=== PATIENT | female | born 1950 | race Caucasian/White ===

== ENCOUNTER 2017-04-25 11:23 | Day surgery (SDC) | payer MEDICARE, MEDICAID ==
[2017-04-24 13:34] VITALS: BMI 40.1
[2017-04-25] MEDS ORDERED: HYDROmorphone 0.5 MG/0.5 ML SYRINGE ONE (11:29)
[2017-04-25] MEDS ORDERED: Midazolam HCl 2 mg/2 ml Vial ONE (11:29)
[2017-04-25] MEDS ORDERED: Famotidine/PF 20 mg/2ml Vial ONE (14:31)
[2017-04-25] MEDS ORDERED: Fentanyl 100 MCG/2 ML VIAL ONE (14:31)
--- NOTE | 2017-04-25 15:51 | MRI ---
MRI LUMBAR SPINE NONCONTRAST: DATE: 04/25/17 HISTORY: 67-year-old female with low back pain and bilateral lumbar radiculopathy, chronic. COMPARISON: No prior MRIs. FINDINGS: There are five lumbar type vertebrae. There is exaggerated lordosis at the lower lumbar spine and lum bosacral junction. The bone marrow signal is normal. Vertebral body heights are maintained. No high g rade disc space narrowing at any level. The conus medullaris terminates at T12-L1. In fact, the spina l canal and thecal sac are generous in caliber throughout all levels, except L4-5. The cauda equina i s arranged in a symmetrical, normal distribution throughout the thecal sac. Small 0.8 cm T2 hyperintense well circumscribed round lesion in the left renal posterior mid pole par enchyma, too small to characterize, but probably a cyst. A smaller such region at the posterior aspec t of the left renal lower pole parenchyma. No major abnormality of perivertebral spaces. T10-11: Mild disc bulge. Left paracentral tiny disc protrusion. No central or neural foraminal stenos is. Mild to moderate disc space narrowing. T11-12: Imaged only on sagittal sequences. Normal. T12-L1: Normal. L1-2: small central disc protrusion which indents the ventral surface of the thecal sac. Otherwise, t his level is normal. L2-3: Mild degenerative facet changes. Otherwise normal. L3-4: Mild degenerative facet changes, otherwise normal. L4-5: Severe right degenerative facet hypertrophy. Moderate left degenerative facet hypertrophy. Bila teral facet joint effusions. Moderate bilateral neural foraminal stenosis. Mild to moderate central s marshal canal stenosis. Lateral recess stenosis bilaterally. Moderate ligamentum flavum thickening. Mil d disc bulge. L5-S1: Bilateral facet joint effusions. Severe left degenerative facet changes. Mild to moderate righ t degenerative facet changes. No central stenosis. Mild bilateral neural foraminal stenosis. IMPRESSION: 1. Severe facet osteoarthrosis on the right at L4-5 and on the left at L5-S1. Moderate facet ost eoarthrosis on the left at L4-5. 2. Lateral recess stenosis bilaterally at L4-5. 3. the rest of the lumbar spine is essentially normal. JN R POS: OFF
== END 2017-04-25 17:08 | disposition home or self-care (01) ==
LOC: SDC/OP 11:23
PROVIDERS: ATTEND Physical Medicine & Rehabilitation
DX: M47.897 Other spondylosis, lumbosacral region (principal); M48.061 Spinal stenosis, lumbar region without neurogenic claudication; M54.16 Radiculopathy, lumbar region; I11.0 Hypertensive heart disease with heart failure; I50.9 Heart failure, unspecified; E03.9 Hypothyroidism, unspecified; E78.5 Hyperlipidemia, unspecified; J44.9 Chronic obstructive pulmonary disease, unspecified; E11.9 Type 2 diabetes mellitus without complications; G47.33 Obstructive sleep apnea (adult) (pediatric); Z88.5 Allergy status to narcotic agent; Z88.8 Allergy status to other drugs, medicaments and biological substances; Z91.048 Other nonmedicinal substance allergy status; Z99.89 Dependence on other enabling machines and devices; E66.01 Morbid (severe) obesity due to excess calories; Z98.890 Other specified postprocedural states; Z68.41 Body mass index [BMI] 40.0-44.9, adult
CPT/HCPCS: 72148; J1170; J2250; J3010; J7620; S0028

== ENCOUNTER 2018-01-22 14:34 | Emergency (ER) | payer MEDICARE, MEDICAID ==
--- NOTE | 2018-01-22 15:44 | ULT ---
RIGHT LOWER EXTREMITY VENOUS DUPLEX ULTRASOUND INCLUDING COLOR AND SPECTRAL DOPPLER IMAGIN01/22/18 HISTORY: 67-year-old female with history of right lower leg pain, swelling and edema for one month. Exam performed from groin to ankle including visualized greater saphenous, common femoral, superficia l femoral, profunda femoral, popliteal, trifurcation, and posterior tibial vein regions. Phasic flow with normal compressibility and normal augmentation. No intraluminal thrombus. IMPRESSION: No evidence for deep venous thrombosis. POS: [facility]
[2018-01-22] MEDS ORDERED: Bacitracin Zinc 1 Packet ONE (15:47)
== END 2018-01-22 15:54 | disposition home or self-care (01) ==
LOC: ERS 14:34
DX: R60.0 Localized edema (principal); M79.604 Pain in right leg; Z86.73 Personal history of transient ischemic attack (TIA), and cerebral infarction without residual deficits; I48.91 Unspecified atrial fibrillation; I25.10 Atherosclerotic heart disease of native coronary artery without angina pectoris; E11.9 Type 2 diabetes mellitus without complications; K21.9 Gastro-esophageal reflux disease without esophagitis; E78.5 Hyperlipidemia, unspecified; J44.9 Chronic obstructive pulmonary disease, unspecified; G40.909 Epilepsy, unspecified, not intractable, without status epilepticus; F41.9 Anxiety disorder, unspecified; F32.9 Major depressive disorder, single episode, unspecified; F17.210 Nicotine dependence, cigarettes, uncomplicated; Z79.899 Other long term (current) drug therapy; Z79.84 Long term (current) use of oral hypoglycemic drugs
CPT/HCPCS: 94760

== ENCOUNTER 2018-04-09 08:48 | Day surgery (SDC) | payer MEDICARE, MEDICAID ==
[2018-04-08 12:11] VITALS: BMI 39.9
[2018-04-09] MEDS ORDERED: PROPOFOL 200 MG/20 ML VIAL ONE (13:12)
--- NOTE | 2018-04-09 13:19 | OP ---
DATE OF PROCEDURE: 04/09/2018 PROCEDURE PERFORMED: Esophagogastroduodenoscopy and colonoscopy with snare polypectomy/endoscopic mucosal resection. PREOPERATIVE DIAGNOSIS: Iron deficiency anemia. DESCRIPTION OF OPERATION: Informed consent was obtained from the patient. She was sedated with total intravenous anesthesia. The bite block was placed and the endoscope was advanced easily to the second portion of the duodenum and retroflexion was performed in the stomach. The esophagus was normal. The GE junction revealed a 1 to 2 cm hiatal hernia. The stomach was normal including retroflex views. The pylorus and first and second portions of the duodenum were normal. The patient was turned around. Rectal exam was performed and was normal. Preparation quality was good. The colonoscope was advanced to the cecum with the ileocecal valve and appendiceal orifice were clearly identified. A 2 mm polyp was removed by cold biopsy forceps from the ascending colon. A 3 mm polyp was removed from the transverse colon by cold biopsy forceps. There was a 1.8 cm flat polyp in the distal transverse colon at the site of the previous tattoo site. This was raised with saline; however, it had dimpled at a crease in the fold. The polyp was then removed in 3 pieces by piecemeal snare cautery polypectomy. The polyp edges were cauterized with argon plasma coagulation. There were 2 small edges to the polyp that did not completely remove with a snare and were cauterized with the argon. The remainder of the colonic mucosa was normal. Retroflex views in the rectum were normal. IMPRESSION: 1. Normal esophagogastroduodenoscopy. 2. Two polyps measuring 2 to 3 mm were removed by cold biopsy forceps from the ascending and transverse colon. 3. Flat 1.8 cm polyp in the distal transverse colon with the site of the previous tattoo. This was raised with saline and removed in 3 pieces by snare cautery polypectomy and the edges were cauterized with argon plasma coagulation. 4. Otherwise normal colonoscopy. RECOMMENDATIONS: Repeat colonoscopy in 6 to 12 months to re-evaluate the polypectomy site. Job ID: [id number]
== END 2018-04-09 13:47 | disposition home or self-care (01) ==
LOC: SDC 08:48
PROVIDERS: ATTEND Internal Medicine Gastroenterology
PROC: 0DJ08ZZ Inspection of Upper Intestinal Tract, Via Natural or Artificial Opening Endoscopic (ICD-10-PCS; principal; 2018-04-09)
PROC: 3E0H8GC Introduction of Other Therapeutic Substance into Lower GI, Via Natural or Artificial Opening Endoscopic (ICD-10-PCS; 2018-04-09)
PROC: 0DBK8ZX Excision of Ascending Colon, Via Natural or Artificial Opening Endoscopic, Diagnostic (ICD-10-PCS; 2018-04-09)
PROC: 0DBL8ZX Excision of Transverse Colon, Via Natural or Artificial Opening Endoscopic, Diagnostic (ICD-10-PCS; 2018-04-09)
PROC: 0DBL8ZX Excision of Transverse Colon, Via Natural or Artificial Opening Endoscopic, Diagnostic (ICD-10-PCS; 2018-04-09)
DX: D50.9 Iron deficiency anemia, unspecified (principal); D12.2 Benign neoplasm of ascending colon; D12.3 Benign neoplasm of transverse colon; K44.9 Diaphragmatic hernia without obstruction or gangrene; E78.5 Hyperlipidemia, unspecified; I10 Essential (primary) hypertension; I48.91 Unspecified atrial fibrillation; Z95.5 Presence of coronary angioplasty implant and graft; E11.9 Type 2 diabetes mellitus without complications; K21.9 Gastro-esophageal reflux disease without esophagitis; F41.9 Anxiety disorder, unspecified; J44.9 Chronic obstructive pulmonary disease, unspecified; I25.10 Atherosclerotic heart disease of native coronary artery without angina pectoris; Z87.891 Personal history of nicotine dependence; Z79.82 Long term (current) use of aspirin; Z79.84 Long term (current) use of oral hypoglycemic drugs; Z79.899 Other long term (current) drug therapy; Z88.5 Allergy status to narcotic agent; Z88.8 Allergy status to other drugs, medicaments and biological substances; Z91.048 Other nonmedicinal substance allergy status
CPT/HCPCS: 88305; J2704

== ENCOUNTER 2018-05-26 17:36 | Observation (INO) | payer MEDICARE, MEDICAID ==
--- NOTE | 2018-05-26 18:12 | RAD ---
CHEST ONE VIEW: 05/26/18 HISTORY: Chest pain. COMPARISON: 03/03/18. FINDINGS: The cardiac silhouette is magnified and enlarged. Pulmonary vasculature accentuated by shallow inspir ation. Mediastinum is midline with aortic calcification. No lobar consolidation or evidence of pneumo thorax. IMPRESSION: Cardiomegaly. Atherosclerosis. POS: [facility]
[2018-05-26 18:36] LABS: #Basophils 0.2 thou/uL (0.0-0.2); #Eosinphils 0.1 thou/uL (0.0-0.7); #Lymphocytes 2.1 thou/uL (1.20-3.40); #Monocytes 0.6 thou/uL (0.11-0.59); #Neutrophils 6.1 thou/uL (1.40-6.50); %Eosinophils 1.4 % (0.0-10.0); %Lymphocytes 23.4 % (21.0-51.0); %Monocytes 6.4 % (0.0-10.0); %Neutrophils 66.8 % (42.0-75.0); Hemoglobin 14.6 g/dL (12.0-16.0); Mean Corpuscular Volume 93.9 fL (78.0-98.0); Platelet Count 170 thou/uL (130-400); RBC Distribution Width 13.1 % (11.5-14.5); Red Blood Cell (RBC) Count 4.58 mill/uL (4.20-5.40); White Blood Cell (WBC) Count 9.1 thou/uL (4.8-10.8)
[2018-05-26 18:52] LABS: ALT (SGPT) 18 U/L (8-55); AST (SGOT) 13 U/L (5-34); Albumin 3.8 g/dL (3.4-4.8); Alkaline Phosphatase 84 U/L (40-150); Anion Gap 14 mmol/L (10-20); BUN (Urea Nitrogen) 10 mg/dL (9.8-20.1); Bilirubin, Total 0.4 mg/dL (0.2-1.2); Calc. Creatinine Clearance 0 mL/min (70-130); Calcium 8.6 mg/dL (7.8-10.44); Carbon Dioxide 24 mmol/L (23-31); Chloride 107 mmol/L (98-107); Estimated GFR-MDRD 64; Globulin 1.5 g/dL (2.4-3.5); Glucose 111 mg/dL (80-115); Potassium 4.5 mmol/L (3.5-5.1); Protein, Total 5.3 g/dL (6.0-8.3); Sodium 140 mmol/L (136-145)
--- NOTE | 2018-05-26 18:52 | ULT ---
VENOUS DUPLEX SONOGRAM RIGHT LOWER EXTREMITY 05/26/18 HISTORY: Right leg pain and edema. FINDINGS: The right common femoral vein and greater saphenous junction were evaluated along with the femoral, d eep femoral, popliteal, and posterior tibial veins. Technical artifact of the images is noted. There is good color and spectral doppler flow and compression. IMPRESSION: No sonographic evidence of DVT within the right lower extremity. POS: [facility]
[2018-05-26] MEDS ORDERED: Acetaminophen 325 MG TAB PO PRN (20:51)
[2018-05-26] MEDS ORDERED: Senokot S 8.6-50 MG TAB PO PRN (20:51)
[2018-05-26 22:33] LABS: Troponin I Less than 0.010 ng/mL (< 0.028)
[2018-05-27 00:55] LABS: Troponin I Less than 0.010 ng/mL (< 0.028)
--- NOTE | 2018-05-27 01:27 | HP ---
PRIMARY CARE PHYSICIAN: Dr. Ly. CARDIOLOGISTS: Dr. Castelan. CHIEF COMPLAINT: Chest pain. HISTORY OF PRESENT ILLNESS: Ms. Camargo is a 68-year-old female who presented to the emergency room for chest pain. reports that they ate lunch. The patient lay down to have a nap, at that point woke up and reported pain to midsternal area. It radiated up to both sides of her neck. She had some sublingual nitroglycerin and took 3 of those with no relief. At that point, the spouse called EMS and they arrived, they put 1 inch of nitroglycerin paste on her chest and pain at that point resolved. She does have a pertinent medical history of hypertension, CAD, has had 2 stents placed, last one in the . She does admit to smoking cigarettes and does use oxygen at home. Reports swelling to bilateral lower extremities. The patient does report history of COPD and sees Dr. Calderon. Reports that she recently saw Dr. Calderon and Dr. Castelan within the last several weeks. In the emergency room, initial troponin was undetectable. BNP is 41. No EKG changes. The patient did have a stress test done in June of 2016 which showed an EF of 71%, and at that time, no discrete perfusion defect within the left ventricular myocardium, normal left ventricular wall motion and ejection fraction. Based on history and presentation with HeartScore of 6, the patient will be admitted to the observation unit for further management. PAST MEDICAL HISTORY: COPD, she is on 3 L of O2 at home, atrial fib, GERD, hypertension, hyperlipidemia, diabetes type 2, has had a CVA in the past which she reports affect her swallowing, fibromyalgia, and seizure disorder. 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 PSYCH HISTORY: Anxiety. SOCIAL HISTORY: Denies alcohol or drug use. Does currently smoke. Smokes 1 pack per day. ALLERGIES: ADHESIVE TAPE, AMITRIPTYLINE, BYETTA, CODEINE, DEMEROL, METOPROLOL, MORPHINE, TOPAMAX, TOPROL. CURRENT MEDICATIONS: 1. Lisinopril 20 mg p.o. once a day. 2. Metformin 500 mg p.o. b.i.d. 3. Duloxetine 30 mg p.o. once a day. 4. Plavix 75 mg p.o. once a day. 5. Diltiazem 180 mg p.o. once a day. 6. Propafenone 150 mg p.o. b.i.d. 7. Zantac 300 mg p.o. once a day. 8. Levothyroxine 75 mcg p.o. once a day. 9. Lyrica 150 mg once a day. 10. Crestor 20 mg p.o. once a day. 11. Zetia 10 mg p.o. once a day in the evening. 12. Zonisamide 300 mg p.o. once a day. 13. Furosemide 20 mg p.o. b.i.d. 14. Clonazepam 0.5 mg one tablet daily as needed. 15. Nitrostat 0.4 mg sublingual as needed for chest pain. 16. Ropinirole 0.5 mg p.o. once a day. 17. Hydrocodone 7.5 mg/325 mg q.4 hours as needed for pain. 18. Breo Ellipta 200/25 mcg daily. 19. Biotin 2 times a day. 20. Prilosec 20 mg p.o. once a day. 21. Cartia XL120 mg once a day. 22. Oxybutynin 5 mg p.o. once a day. 23. Ranexa 500 mg p.o. once a day. 24. Aspirin 81 mg p.o. daily. REVIEW OF SYSTEMS: CONSTITUTIONAL: The patient denies fever or chills. EYES: Denies any eye pain, eye discharge, or vision changes. ENT: Denies any sore throat or rhinorrhea. CARDIOVASCULAR: Does report some chest pain. Denies palpitations. RESPIRATORY: Does report shortness of breath. Denies cough. GI: Denies abdominal pain, nausea, vomiting, diarrhea, or constipation. MUSCULOSKELETAL: Denies any myalgias, recent falls, or injuries. SKIN: Denies any skin changes or rash. All other systems reviewed and negative unless mentioned in the HPI. PHYSICAL EXAMINATION: VITAL SIGNS: Blood pressure 131/58, pulse is 65, respirations 18, temperature is 98.5, pO2 sats 96%. CONSTITUTIONAL: The patient appears nontoxic, is in no apparent distress, is alert and oriented to person, place, and time. HEENT: Head is atraumatic and normocephalic. Eyes; eyelids are normal to inspection. Pupils are equal, round, and reactive to light. ENT; mucous membranes are moist. Mouth exam is normal. NECK: Normal range of motion. Trachea is midline. RESPIRATORY/CHEST: She is on 3 L of O2. Breath sounds are clear. No wheezing. Chest movement is symmetrical. CARDIOVASCULAR: Normal rate and rhythm. Heart sounds are normal. ABDOMEN: Nontender. Bowel sounds are heard. BACK: Normal range of motion. No tenderness. EXTREMITIES: Upper extremities; normal inspection. Normal range of motion. Lower extremities, normal range of motion. Edema is noted to bilateral lower extremities. +2 pedal pulses are equal bilaterally. NEUROLOGIC: The patient is oriented to person, place, and time. Speech is normal. No focal motor or sensory deficits. SKIN: Warm, dry, normal in color. IMAGING DATA: EKG in the emergency room shows normal sinus rhythm, beats per minute 73, conduction T waves, axis is left, radiology interpretation some cardiomegaly and atherosclerosis. PERTINENT LABORATORY DATA: Sodium is 140, potassium 4.5, chloride 107, carbon dioxide 24, gap is 14, BUN is 10, creatinine is 0.87, estimated GFR is 64, glucose is 111, calcium is 8.6, bilirubin is 0.4, AST 13, ALT 18, alkaline phosphatase is 84. First troponin is undetectable. BNP 41. White blood cell count is 9.1, hemoglobin 14.6, hematocrit 43.0, platelet count is 170. PLAN AND ASSESSMENT: 1. Chest pain. We will trend troponins. Order a stress test and continue aspirin. 2. Hypertension. We will continue home medications. We will trend. 3. Diabetes type 2. We will restart home medications. We will add a sliding scale. Check blood sugars before meals and at bedtime. 4. Coronary artery disease. We will continue home medications, see #1. 5. Chronic obstructive pulmonary disease. We will continue the patient's oxygen. Continue home medication. 6. History of congestive heart failure. We will continue home medications, stable at this time. 7. Hypothyroidism. We will continue home medications. Thyroid function tests were performed on 05/19/2018, and appeared stable. 8. Lipids were also checked on the of this month. 9. Gastrointestinal prophylaxis will be started. The patient is already on Plavix. 10. Hospital course will be dependent on clinical findings. Job ID: [id number]
[2018-05-27] MEDS: Famotidine 20 MG TAB PO SCH ×2 (04:15→08:23)
[2018-05-27 05:22] LABS: #Basophils 0.1 thou/uL (0.0-0.2); #Eosinphils 0.2 thou/uL (0.0-0.7); #Lymphocytes 2.8 thou/uL (1.20-3.40); #Monocytes 0.7 thou/uL (0.11-0.59); #Neutrophils 5.3 thou/uL (1.40-6.50); %Basophils 0.7 % (0.0-1.0); %Eosinophils 1.9 % (0.0-10.0); %Lymphocytes 30.8 % (21.0-51.0); %Monocytes 7.7 % (0.0-10.0); %Neutrophils 58.9 % (42.0-75.0); Hemoglobin 14.2 g/dL (12.0-16.0); Mean Corpuscular HGB CONC 33.3 g/dL (32.0-36.0); Mean Corpuscular Hemoglobin 31.9 pg (27.0-31.0); Mean Corpuscular Volume 95.8 fL (78.0-98.0); Mean Platelet Volume 7.9 fL (7.4-10.4); Platelet Count 160 thou/uL (130-400); RBC Distribution Width 13.1 % (11.5-14.5); Red Blood Cell (RBC) Count 4.44 mill/uL (4.20-5.40)
[2018-05-27 05:34] LABS: ALT (SGPT) 15 U/L (8-55); AST (SGOT) 14 U/L (5-34); Albumin 3.5 g/dL (3.4-4.8); Alkaline Phosphatase 76 U/L (40-150); Anion Gap 11 mmol/L (10-20); BUN (Urea Nitrogen) 10 mg/dL (9.8-20.1); Bilirubin, Total 0.4 mg/dL (0.2-1.2); Calc. Creatinine Clearance 108 mL/min (70-130); Calcium 8.7 mg/dL (7.8-10.44); Carbon Dioxide 28 mmol/L (23-31); Chloride 107 mmol/L (98-107); Estimated GFR-MDRD 69; Globulin 1.7 g/dL (2.4-3.5); Glucose 99 mg/dL (80-115); Potassium 4.2 mmol/L (3.5-5.1); Protein, Total 5.2 g/dL (6.0-8.3); Sodium 142 mmol/L (136-145)
[2018-05-27] MEDS ORDERED: Enoxaparin Sodium 40 MG/0.4 ML SYRINGE SC SCH (09:00)
--- NOTE | 2018-05-27 15:14 | NM ---
FEXAM: Nuclear medicine stress only cardiac perfusion examination with ejection fraction HISTORY: Chest pain TECHNIQUE: Stress images: 29.60 mCi of technetium 9M sestamibi; Lexiscan stress protocol COMPARISON: None FINDINGS: Tomographic images: No myocardial perfusion defects. Gated images: There is normal wall motion and ejection fraction. The estimated LVEF is 76% IMPRESSION: Normal stress only myocardial perfusion evaluation.
[2018-05-27] MEDS ORDERED: Regadenoson 0.4 MG/5 ML SYRINGE ONE (15:43)
[2018-05-27 16:08] VITALS: BP 138/62; TEMP 98.7
--- NOTE | 2018-05-28 02:23 | DIS ---
DATE OF ADMISSION: 05/26/2018 DATE OF DISCHARGE: 05/27/2018 ALLERGIES: ADHESIVE TAPE, AMITRIPTYLINE, BYETTA, CODEINE, DEMEROL, METOPROLOL, MORPHINE, TOPAMAX. CHIEF COMPLAINT: Chest pain. FINAL DIAGNOSES: 1. Chest pain, resolved, acute coronary syndrome ruled out, nuclear stress test negative for reversible ischemia. 2. Coronary artery disease, status post stents, patient of Dr. Castelan. 3. Paroxysmal atrial fibrillation, currently in normal sinus rhythm. 4. Tobacco abuse. 5. Obesity. 6. Fibromyalgia. 7. Prior cerebrovascular accident. PROCEDURES PERFORMED: None. LABORATORY RESULTS: White blood cell count 9.0, hemoglobin 14.2, hematocrit 42.5. Sodium 142, potassium 4.2, chloride 107, anion gap 11, BUN 10, creatinine 0.82, and GFR 69. Liver function tests within normal limits. Troponin negative x3. BNP 41. Albumin 3.5. IMAGING RESULTS: Nuclear stress test using Lexiscan stress protocol showed normal stress only myocardial perfusion evaluation with normal wall motion and no myocardial perfusion defects. CONSULTATIONS: None. HOSPITAL COURSE: The patient is a pleasant 68-year-old obese female with past medical history significant for coronary artery disease, status post stents with normal MPI in 2017; paroxysmal atrial fibrillation, prior stroke, and fibromyalgia, who presented to the hospital with complaints of chest pain that began last night when she was watching a movie. She describes the chest pain as pressure. She did have some associated shortness of breath, it radiated up to the neck. She did take 3 sublingual nitroglycerin without any relief of her pain, and so presented to the ER for further workup and treatment. In the ER, she was given 1 inch of nitroglycerin paste, which did eventually relieve her pain. Her serial enzymes were negative x3. This morning, she did have her nuclear stress test which was negative for ischemia. She has walked and not had any further chest discomfort. Her presenting symptoms have resolved. PHYSICAL EXAMINATION: VITAL SIGNS: Blood pressure 138/62, temperature 98.7, pulse is 64, and O2 saturation is 94% on room air. GENERAL: This is an obese female, resting comfortably, in no distress. HEENT: Atraumatic and normocephalic. Eye movements intact. NECK: Supple. No lymphadenopathy. No carotid bruits. RESPIRATORY: Regular respiratory rate and pattern, overall clear to auscultation. CARDIOVASCULAR: S1, S2. Regular rate and rhythm. No appreciable murmurs, rubs, or gallops. GI: Soft, nontender, and obese. PERIPHERAL VASCULAR: No lower extremity pitting edema. MUSCULOSKELETAL: No joint effusion or swelling. NEUROLOGIC: She is awake and alert. Cranial nerves 2 through 12 intact. No focal deficits. SKIN: Warm and dry. No rashes. CONDITION AT DISCHARGE: Stable. DISCHARGE MEDICATIONS: The patient will continue her home medication regimen including; 1. Lisinopril 20 mg p.o. once a day. 2. Metformin 500 mg p.o. b.i.d. 3. Duloxetine 30 mg p.o. daily. 4. Plavix 75 mg once a day. 5. Diltiazem 180 mg p.o. daily. 6. Propafenone 150 mg p.o. t.i.d. 7. Zantac 300 mg p.o. once daily. 8. Levothyroxine 75 mcg p.o. daily. 9. Lyrica 150 mg daily. 10. Crestor 20 mg at bedtime. 11. Zetia 10 mg at bedtime. 12. Zonisamide 300 mg daily. 13. Furosemide 20 mg p.o. b.i.d. 14. Clonazepam 0.5 mg tablet as needed. 15. Nitrostat 0.4 mg sublingual as needed for chest pain. 16. Ropinirole 0.5 mg at bedtime. 17. Hydrocodone 7.5/325 q.4 hours p.r.n. 18. Breo inhaler once daily. 19. Biotin 2 times a day. 20. Prilosec 20 mg once daily. 21. Oxybutynin 5 mg p.o. once daily. 22. Ranexa 500 mg p.o. b.i.d. 23. Aspirin 81 mg daily. I have refilled the patient's sublingual nitroglycerin, so that she has fresh on hand. DISCHARGE DISPOSITION: Home. PLAN: The patient will continue to keep fresh nitroglycerin on hand. I have explained that her chest discomfort could be related to other than cardiac etiologies such as esophageal spasm. She will return to the hospital with any recurrence of symptoms. She will follow up with both, Dr. Calderon and Dr. Castelan as scheduled. I have given her extensive counseling on tobacco cessation along with risk factor modification. The patient does understand the above plan and discharge were discussed with Dr. Edmond, who does agree as above. Job ID: [id number]
--- NOTE | 2018-05-30 20:53 | EKG ---
Test Reason : CP Blood Pressure : / mmHG Vent. Rate : 073 BPM Atrial Rate : 073 BPM P-R Int : 164 ms QRS Dur : 084 ms QT Int : 410 ms P-R-T Axes : 052 -44 028 degrees QTc Int : 451 ms Normal sinus rhythm Left axis deviation Low voltage QRS Nonspecific T wave abnormality Abnormal ECG Confirmed by RACHNA ROMERO DO ([id number]), editor book JULISSA ROCHA ([id number]) on 05/30/2018 8:53:11 PM Referred By: Confirmed By:RACHNA ROMERO DO
== END 2018-05-27 17:13 | disposition home or self-care (01) ==
LOC: ERS 17:36 → 2SW 21:28
PROVIDERS: ADMIT Hospitalist; ATTEND Hospitalist
DX: R07.2 Precordial pain (principal); I25.10 Atherosclerotic heart disease of native coronary artery without angina pectoris; I10 Essential (primary) hypertension; F17.210 Nicotine dependence, cigarettes, uncomplicated; J44.9 Chronic obstructive pulmonary disease, unspecified; Z99.81 Dependence on supplemental oxygen; K21.9 Gastro-esophageal reflux disease without esophagitis; E78.5 Hyperlipidemia, unspecified; E11.9 Type 2 diabetes mellitus without complications; I69.998 Other sequelae following unspecified cerebrovascular disease; G40.909 Epilepsy, unspecified, not intractable, without status epilepticus; F41.9 Anxiety disorder, unspecified; E03.9 Hypothyroidism, unspecified; I48.0 Paroxysmal atrial fibrillation; M79.7 Fibromyalgia; E66.9 Obesity, unspecified; Z68.39 Body mass index [BMI] 39.0-39.9, adult; Z90.710 Acquired absence of both cervix and uterus; Z95.5 Presence of coronary angioplasty implant and graft; Z96.651 Presence of right artificial knee joint; Z98.41 Cataract extraction status, right eye; Z98.42 Cataract extraction status, left eye; Z91.09 Other allergy status, other than to drugs and biological substances; Z90.49 Acquired absence of other specified parts of digestive tract; Z88.5 Allergy status to narcotic agent; Z88.8 Allergy status to other drugs, medicaments and biological substances; Z79.84 Long term (current) use of oral hypoglycemic drugs; Z79.02 Long term (current) use of antithrombotics/antiplatelets; Z79.82 Long term (current) use of aspirin; Z79.51 Long term (current) use of inhaled steroids; Z79.899 Other long term (current) drug therapy; Z98.890 Other specified postprocedural states
CPT/HCPCS: 71045; 78452; 80053 ×2; 83880; 84484 ×3; 85025 ×2; 93005; 93017; 93971; 97116; 97139 ×2; 99285; A9500; G0378 ×2; 36415; J2785

== ENCOUNTER 2018-09-14 14:53 | Inpatient (IN) | payer MEDICARE, MEDICAID ==
[2018-09-14 16:08] LABS: #Eosinphils 0.1 thou/uL (0.0-0.7); #Lymphocytes 1.8 thou/uL (1.20-3.40); #Monocytes 0.6 thou/uL (0.11-0.59); #Neutrophils 6.1 thou/uL (1.40-6.50); %Basophils 0.2 % (0.0-1.0); %Eosinophils 1.4 % (0.0-10.0); %Lymphocytes 20.5 % (21.0-51.0); %Monocytes 6.6 % (0.0-10.0); %Neutrophils 71.3 % (42.0-75.0); Hemoglobin 13.2 g/dL (12.0-16.0); Mean Corpuscular HGB CONC 33.3 g/dL (32.0-36.0); Mean Corpuscular Volume 93.3 fL (78.0-98.0); Mean Platelet Volume 9.2 fL (7.4-10.4); Platelet Count 122 thou/uL (130-400); Red Blood Cell (RBC) Count 4.26 mill/uL (4.20-5.40); White Blood Cell (WBC) Count 8.5 thou/uL (4.8-10.8)
[2018-09-14 16:25] LABS: ALT (SGPT) 11 U/L (8-55); AST (SGOT) 13 U/L (5-34); Albumin 3.6 g/dL (3.4-4.8); Alkaline Phosphatase 67 U/L (40-150); Anion Gap 13 mmol/L (10-20); BUN (Urea Nitrogen) 18 mg/dL (9.8-20.1); Bilirubin, Total 0.4 mg/dL (0.2-1.2); CK (CPK) 50 U/L (29-168); Calc. Creatinine Clearance 0 mL/min (70-130); Calcium 8.7 mg/dL (7.8-10.44); Carbon Dioxide 27 mmol/L (23-31); Chloride 103 mmol/L (98-107); Estimated GFR-MDRD 42; Globulin 1.9 g/dL (2.4-3.5); Glucose 101 mg/dL (80-115); Potassium 4.5 mmol/L (3.5-5.1); Protein, Total 5.5 g/dL (6.0-8.3); Sodium 138 mmol/L (136-145)
[2018-09-14 16:46] LABS: Free T4 (Free Thyroxine) 1.15 ng/dL (0.70-1.48); Thyroid Stimulating Hormone 0.5353 uIU/mL (0.35-4.94)
[2018-09-14] MEDS ORDERED: Naloxone HCl 0.4 mg/ml Vial ONE ×3 (17:04→19:50)
--- NOTE | 2018-09-14 17:14 | CT ---
CT BRAIN WITHOUT CONTRAST: HISTORY: Fall. Altered mental status. COMPARISON: CT brain from 01/12/2016. FINDINGS: There is a partially calcified right frontal meningioma. No acute hemorrhage or infarct. No midline shift or mass effect. Ventricular size and extraaxial CSF spaces are similar. Moderate microvascular ischemic changes. The paranasal sinuses and mastoids are clear. The calvariu m is intact. The globes are intact. IMPRESSION: No acute intracranial abnormality. POS: HOME
--- NOTE | 2018-09-14 17:18 | CT ---
CT CERVICAL SPINE WITHOUT CONTRAST: INDICATIONS: Altered mental status with trauma. Possible fall at home. Concern for neck injury. COMPARISON: CT cervical spine, dated 08/06/2013. FINDINGS: Slight anterior translation of C2 on C3 and of C3 on C4 is stable. There is moderate to severe multi level spondylosis of the cervical spine. No acute fracture or subluxation is evident. The osseous c entral canal appears preserved. The prevertebral soft tissues are normal appearing. Mild mucus debr is is seen within the right aspect of the piriform sinuses and vallecula. No lymphadenopathy is evid ent. There is some subsegmental volume loss within the upper lobes. IMPRESSION: 1. No acute fracture or subluxation demonstrated. 2. Stable moderate to severe multilevel spondylosis of the cervical spine. POS: [facility]
[2018-09-14] MEDS ORDERED: Guaifenesin DM 100-10/5 ML UDCUP PO PRN (17:47)
[2018-09-14] MEDS ORDERED: HumaLOG 300 UNITS/3 ML VIAL SC PRN ×2 (17:47)
[2018-09-14] MEDS ORDERED: Senokot S 8.6-50 MG TAB PO PRN (17:47)
[2018-09-14] MEDS ORDERED: Dextrose 50% Abboject 50 ML SYRINGE SLOW IVP PRN (17:47)
[2018-09-14] MEDS ORDERED: Acetaminophen 325 MG TAB PO PRN (17:47)
[2018-09-14] MEDS ORDERED: Dextrose 5% in Water 1,000 ML IV PRN (17:47)
[2018-09-14] MEDS ORDERED: Bisacodyl 10 MG SUPP PR PRN (17:47)
[2018-09-14] MEDS ORDERED: Ondansetron PF 4 MG/2 ML Vial IVP PRN (17:47)
[2018-09-14 18:30] LABS: Bilirubin Negative (Negative); Blood, Urine Negative (Negative); Clarity Clear (Clear); Glucose, Urine (Dipstick) Normal (Negative); Leukocyte Negative Leu/uL (Negative); Nitrite Negative (Negative); Protein, Urine (Dipstick) Negative (Neg-Trace); Urobilinogen Normal mg/dL (Less than 2)
[2018-09-14] MEDS ORDERED: Naloxone HCl 0.4 mg/ml Vial IV SCH (19:45)
--- NOTE | 2018-09-14 20:42 | HP ---
REASON FOR ADMISSION: Acute encephalopathy, acute respiratory failure with hypoxia secondary to likely narcotics, moderate dehydration, acute kidney injury. HISTORY OF PRESENTING ILLNESS: Please note majority of this history is obtained by talking to the patient's who is here at bedside and son as the patient is very lethargic. Her attention span after repeated stimulation is hardly few seconds. The patient goes back to sleep. When she wakes up, she does respond well. She follows command. She follows verbal stimuli. Per , the patient took shower early this morning and she could not get up from the shower. The had to literally pick her up and put her in the bed. After a few hours, the patient tried to ambulate and was on the ground, and the had to literally pick her up again and put her in bed. He also mentioned that she has been more lethargic and sleepy for the last 4 days now. She normally walks with a walker inside the house and a bit outside. For long distances, she uses a wheelchair. She has chronic pain in both her upper cervical and lower lumbar spines. She has had four shots to her lower back done [address] Mukherjee, pain specialist. She had a neck shot four weeks back by Dr. Mukherjee as well. No complaints of fever at home. No cough or expectoration. No complaints of chest pain. No urinary frequency or urgency. mentions that she has not been eating much for the last 4 days now. She usually drinks up to a liter of Coke daily. She also smokes around 2 packs a day daily. PAST MEDICAL AND SURGICAL HISTORY: Prior history of overdose. Nuclear stress test done in May of 2018 was negative, ejection fraction was 76%. She has had EGD and colonoscopy done on 04/09/2018. History of COPD, on 3 L oxygen at home. Chronic atrial fibrillation, GERD, hypertension, dyslipidemia, diabetes mellitus type 2, history of CVA in the past with some discomfort with swallowing, fibromyalgia, seizure disorder, appendectomy, coronary artery disease with prior 2 stents, cholecystectomy, hysterectomy, right knee replacement, bilateral cataract removal. CURRENT MEDICATIONS: The patient is on; 1. Levothyroxine 75 mcg p.o. daily. 2. Lasix 20 mg daily. 3. Omeprazole 20 mg daily. 4. Cartia XT 120 mg daily. 5. Propafenone 150 mg three times daily. 6. Metformin 500 mg two tablets twice daily. 7. Clonazepam 1 mg p.o. twice daily. 8. Oxybutynin 5 mg twice daily. 9. Ranexa 500 mg twice daily. 10. Lyrica 150 mg twice daily. 11. Aspirin 81 mg daily. 12. Ranitidine 300 mg p.o. daily. 13. Duloxetine 60 mg daily. 14. Ezetimibe 10 mg p.o. daily. 15. Lisinopril 5 mg daily. 16. Rosuvastatin 20 mg daily. 17. Zonisamide 300 mg p.o. at bedtime. 18. Loratadine 10 mg p.o. daily. 19. Lipo-Flavonoid one tablet three times daily. ALLERGIES: ALLERGIC TO AMITRIPTYLINE, BYETTA, CODEINE, DEMEROL, METOPROLOL, MORPHINE, TOPAMAX, TOPROL, AND ADHESIVE TAPE. PERSONAL HISTORY: The patient continues to smoke two packs a day. Does not abuse alcohol or drugs. Lives with her . They have been for nearly 48 years. FAMILY HISTORY: Mother at the age of 71 years, she has had history of breast cancer. Father at the age of 79, he has had history of prostate cancer. CODE STATUS: Do not attempt to resuscitate. This was confirmed with the patient and who is here at bedside. REVIEW OF SYSTEMS: CONSTITUTIONAL: Negative for weight loss or gain, ability to conduct usual activities. SKIN: Negative for rash, itching. EYES: Negative for double vision, pain. ENT/MOUTH: Negative for nose bleeding, neck stiffness, pain, tenderness. CARDIOVASCULAR: Negative for palpitations, dyspnea on exertion, orthopnea. RESPIRATORY: Negative for shortness of breath, wheezing, cough, hemoptysis, fever or night sweats. GASTROINTESTINAL: Negative for poor appetite, abdominal pain, heartburn, nausea, vomiting, constipation, or diarrhea. GENITOURINARY: Negative for urgency, frequency, dysuria, nocturia. MUSCULOSKELETAL: Negative for pain, swelling. NEUROLOGIC/PSYCHIATRIC: Negative for anxiety, depression. ALLERGY/IMMUNOLOGIC: Negative for skin rash, bleeding tendency. PHYSICAL EXAMINATION: GENERAL: The patient is a 68-year-old female, who is currently not in any acute distress, but is very lethargic. VITAL SIGNS: Blood pressure 110/60, pulse 66 per minute, respiratory rate 16 per minute, temperature 97.9 degrees Fahrenheit, saturating 92% on 2 L nasal cannula. NECK: Supple. No elevated JVD. HEENT: Eyes; extraocular muscles intact. Pupils are reacting to light. Oral cavity, mucous membranes are dry. No exudates or congestion. CARDIOVASCULAR SYSTEM: S1 and S2, heard. Regular rhythm. RESPIRATORY SYSTEM: Air entry 1+ bilateral. Scattered rhonchi plus no rales or wheezes. ABDOMEN: Soft. Bowel sounds heard. No tenderness, rigidity, or guarding. EXTREMITIES: No peripheral edema or calf tenderness. VASCULAR SYSTEM: Peripheral pulses 1+ bilateral. No ischemic ulcerations or gangrene. CENTRAL NERVOUS SYSTEM: No gross focal deficits noted. The patient moves both upper extremities well, but has difficulty moving her both lower extremities. She is barely able to move with gravity on the bed. Again, the patient is very lethargic and accurate neurologic exam is difficult to perform. PSYCHIATRIC SYSTEM: The patient is very lethargic, but responds well to verbal questions in her limited attention span. No obvious hallucinations or delusions. LABORATORY DATA: CT brain without contrast done showed no acute intracranial abnormality. CT cervical spine without contrast done showed no acute fracture or subluxation. Stable moderate to severe multilevel spondylosis of the C-spine seen. White count 8.5, hemoglobin and hematocrit are 13 and 39, platelet count 122, MCV is 93 with 71% neutrophils. Electrolytes stable. BUN 18, creatinine 1.27. Serum bicarb 27, serum glucose 101. Liver enzymes within normal limits. Ammonia is 30. Albumin is 3.6. TSH 0.53, free T4 of 1.1. Troponin-I less than 0.01. Urinalysis shows negative nitrite and leukocyte esterase. EKG done shows normal sinus rhythm at 70 beats per minute. There is poor R-wave progression. There are questionable Q-waves in leads II, III, aVF. CLINICAL IMPRESSION AND PLAN: The patient will be upgraded to IMCU from telemetry. The patient was initially admitted to telemetry and became more lethargic with respiratory rates dropping to 10 per minute, although her saturations were holding up to 90%. She will be given another dose of Narcan, that will be the second dose. Initial dose given in the ER, with which she responded with being more alert and awake. She will be closely monitored in IMCU for airway. We will also place her on DuoNebs, steroids 20 mg IV q.6 hourly. Blood and urine cultures have been obtained in the ER. We will empirically place her on Levaquin for now. The patient has been lethargic for the last 4 days now. She will be gently hydrated with normal saline. We will continue aspirin, Cardizem CD, propafenone, levothyroxine, Lyrica, Ranexa, Crestor, and zonisamide as before. She will be on clear liquid diet until she becomes more awake and alert. We will continue to closely monitor her. Job ID: [id number]
[2018-09-14] MEDS: Sodium Chloride 0.9% 1,000 ML IV SCH (20:55)
[2018-09-14] MEDS ORDERED: Famotidine/PF 20 mg/2ml Vial SLOW IVP SCH (21:00)
[2018-09-14] MEDS: Propafenone HCl 150 MG TAB PO SCH (21:04)
[2018-09-14] MEDS: Ezetimibe 10 MG TAB PO SCH (21:04)
[2018-09-14] MEDS: DULoxetine 60 MG CAP PO SCH (21:05)
[2018-09-14] MEDS: Rosuvastatin 20 MG TAB PO SCH (21:05)
[2018-09-14] MEDS: Aspirin 81 mg Enteric Coated Tablet PO SCH (21:05)
[2018-09-14] MEDS: Pregabalin 75 MG CAP PO SCH (21:08)
[2018-09-14] MEDS: Nicotine 21 MG PATCH TD SCH (21:11)
[2018-09-14] MEDS: Zonisamide 100 MG CAP PO SCH (22:40)
[2018-09-14 23:18] VITALS: BMI 44.8
[2018-09-15] MEDS: methylPREDNISolone Sod Succ 40 MG VIAL IVP SCH ×3 (00:15→11:15)
[2018-09-15 04:38] LABS: Amphetamine Not Detected (NotDetected); Barbiturates Screen Not Detected (NotDetected); Benzodiazepine Screen Not Detected (NotDetected); Cocaine Metabolite Screen Not Detected (NotDetected); Medtox Control Line Valid? VALID (VALID); Medtox Reader # READER 4; Methadone Not Detected (NotDetected); Methamphetamine Not Detected (NotDetected); Opiate Screen Not Detected (NotDetected); Oxycodone Screen Not Detected (NotDetected); Phencyclidine (PCP) Not Detected (NotDetected); THC/Cannabinoid Screen Not Detected (NotDetected); Tricyclic Screen Not Detected (NotDetected)
[2018-09-15 05:06] LABS: #Monocytes 0.1 thou/uL (0.11-0.59); #Neutrophils 5.3 thou/uL (1.40-6.50); %Basophils 0.5 % (0.0-1.0); %Eosinophils 0.6 % (0.0-10.0); %Lymphocytes 15.8 % (21.0-51.0); %Monocytes 1.3 % (0.0-10.0); %Neutrophils 81.8 % (42.0-75.0); Hemoglobin 13.6 g/dL (12.0-16.0); Mean Corpuscular HGB CONC 32.9 g/dL (32.0-36.0); Mean Corpuscular Hemoglobin 30.7 pg (27.0-31.0); Mean Corpuscular Volume 93.5 fL (78.0-98.0); Mean Platelet Volume 8.5 fL (7.4-10.4); Platelet Count 111 thou/uL (130-400); RBC Distribution Width 12.6 % (11.5-14.5); Red Blood Cell (RBC) Count 4.43 mill/uL (4.20-5.40); White Blood Cell (WBC) Count 6.5 thou/uL (4.8-10.8)
[2018-09-15 05:24] LABS: Anion Gap 10 mmol/L (10-20); BUN (Urea Nitrogen) 14 mg/dL (9.8-20.1); Calc. Creatinine Clearance 106 mL/min (70-130); Calcium 8.8 mg/dL (7.8-10.44); Carbon Dioxide 26 mmol/L (23-31); Chloride 105 mmol/L (98-107); Estimated GFR-MDRD 70; Glucose 123 mg/dL (80-115); Potassium 4.7 mmol/L (3.5-5.1); Sodium 136 mmol/L (136-145)
[2018-09-15] MEDS: Levothyroxine Sodium 75 MCG TAB PO SCH (06:30)
[2018-09-15] MEDS: Sodium Chloride 0.9% 1,000 ML IV SCH (09:56)
[2018-09-15] MEDS: metFORMIN 500 MG TAB PO SCH ×2 (09:57→17:18)
[2018-09-15] MEDS: Enoxaparin Sodium 40 MG/0.4 ML SYRINGE SC SCH (09:58)
[2018-09-15] MEDS: Oxybutynin 5 MG TAB PO SCH ×2 (09:59→21:04)
[2018-09-15] MEDS: Propafenone HCl 150 MG TAB PO SCH (09:59)
[2018-09-15] MEDS: Pregabalin 75 MG CAP PO SCH ×2 (09:59→21:06)
--- NOTE | 2018-09-15 10:22 | CON ---
DATE OF CONSULTATION: 09/15/2018 HISTORY OF PRESENT ILLNESS: This is a 68-year-old female, who was admitted to the hospital with encephalopathy. She is confused. This morning, she tells me she is unclear why she came to the hospital, but she was having some shaking spells. She sees Dr. Ly in [place], [place] at multiple issues. Continues to smoke a pack a day. Denies any coughing or wheezing. On a regular day, she can barely walk up 100 feet without getting markedly short of breath. She is noncompliant with the CPAP machine apparently causes her chest pain. PAST MEDICAL HISTORY: 1. COPD. 2. Diabetes. 3. Hypothyroidism. 4. Encephalopathy. 5. Hyperlipidemia. 6. CHF by history, several cardiac stents. PAST SURGICAL HISTORY: 1. Hysterectomy. 2. Appendix. 3. Two cardiac stents done in [place], [place]. 4. Cholecystectomy. 5. Left total knee. 6. Colonoscopy. HOME MEDICATIONS: Include, 1. Metformin. 2. Klonopin. 3. Crestor. 4. Ranexa. 5. Zantac. 6. Rythmol. 7. Lyrica. 8. Ditropan. 9. Omeprazole. 10. Nitrostat. 11. Claritin. 12. Synthroid. 13. Nebulizer. 14. Lasix. 15. Zetia. 16. Cardizem 120. 17. Cymbalta 60. 18. Aspirin. Since admission, see started on steroids, neb treatment, empiric antibiotics. ALLERGIES: MULTIPLE INCLUDING AMITRIPTYLINE, MORPHINE, ADHESIVE TAPE, CODEINE, DEMEROL, AND TOPAMAX. REVIEW OF SYSTEMS: Otherwise, 10-point negative. PHYSICAL EXAMINATION: GENERAL: Morbidly obese female, who is less encephalopathic this morning. VITAL SIGNS: Pulse 66, blood pressure 120/60, and sats 100% on 2 L. CHEST: Decreased breath sounds. No wheezing. CARDIAC: Normal S1 and S2. No gallops. ABDOMEN: No masses. LABORATORY DATA: White count 6000, Hemoglobin and hematocrit are 13 and 41, platelet count 111, it is low, but normal before. Lytes are normal. Drug screen was negative. CT brain was negative. IMPRESSION: 1. Metabolic encephalopathy. 2. Morbid obesity. 3. Hypothyroidism. 4. Sleep apnea. 5. Diabetes. 6. Coronary artery disease. PLAN: She probably needs to be restarted on her home CPAP for the reasons why she is feeling so sleepy and tired. She may very well require repeat sleep study. Otherwise pulmonary orozco, she is to refrain from smoking. Continue neb treatments and steroids. We will follow. 70 minutes, consultation note, 50% direct patient care. Job ID: [id number]
--- NOTE | 2018-09-15 11:02 | RAD ---
XR Chest 1 View Portable HISTORY: COPD COMPARISON: 05/26/2018 study FINDINGS: Heart size is enlarged. There are atherosclerotic changes of the aorta. The lungs are clear of infiltrates. There are no signs of failure. IMPRESSION: Cardiomegaly. Stable chest.
--- NOTE | 2018-09-15 12:34 | PDOC.PN ---
- Subjective Encounter Start Date: 09/15/18 Encounter Start Time: 11:20 Subjective: is awake and oriented this am -: no sob - Objective Resuscitation Status - Order Detail: 09/14/18 17:34 Resuscitation Status Routine Resuscitation Status: DNAR: NO Resuscitation Discussed with: d/w and POA at bedside in Emergency room May Reviewed: Yes Vital Signs & Weight: Vital Signs (12 hours) Temp Pulse Pulse Pulse Resp BP BP 09/15/18 10:51 74 16 09/15/18 10:28 98.0 F 09/15/18 10:00 77 81 140/67 09/15/18 09:57 70 137/54 L 09/15/18 08:00 09/15/18 07:00 97.0 F L 09/15/18 06:47 09/15/18 06:46 66 16 09/15/18 03:00 97.5 F L BP Pulse Ox Pulse Ox Pulse Ox 09/15/18 10:51 100 09/15/18 10:28 09/15/18 10:00 129/50 L 100 98 09/15/18 09:57 09/15/18 08:00 99 09/15/18 07:00 09/15/18 06:47 100 09/15/18 06:46 100 09/15/18 03:00 Weight Weight 229 lb 6.4 oz Most Recent Monitor Data Heart Rate from ECG 73 NIBP 111/52 NIBP BP-Mean 71 Respiration from ECG 17 SpO2 100 Result Diagrams: 09/15/18 04:37 09/15/18 04:37 Additional Labs: Accuchecks 09/15/18 09/15/18 09/14/18 10:05 05:51 21:25 POC Glucose 182 H 145 H 103 09/14/18 19:44 POC Glucose 115 H Phys Exam - Physical Examination HEENT: PERRLA, sclera anicteric Neck: no JVD, supple Respiratory: no wheezing, no rales Cardiovascular: RRR, no significant murmur Gastrointestinal: soft, non-tender, positive bowel sounds Musculoskeletal: no edema, pulses present Neurological: non-focal, moves all 4 limbs Psychiatric: normal affect, A&O x 3 Dx/Plan (1) Acute encephalopathy Code(s): G93.40 - ENCEPHALOPATHY, UNSPECIFIED Status: Acute (2) COPD (chronic obstructive pulmonary disease) Status: Chronic Qualifiers: COPD type: chronic bronchitis (3) Morbid obesity due to excess calories Code(s): E66.01 - MORBID (SEVERE) OBESITY DUE TO EXCESS CALORIES Status: Chronic (4) Atrial fibrillation Code(s): I48.91 - UNSPECIFIED ATRIAL FIBRILLATION Status: Chronic Qualifiers: Atrial fibrillation type: paroxysmal Qualified Code(s): I48.0 - Paroxysmal atrial fibrillation (5) CAD (coronary artery disease) Code(s): I25.10 - ATHSCL HEART DISEASE OF [place] CORONARY ARTERY W/O ANG PCTRS Status: Chronic Qualifiers: Coronary Disease-Associated Artery/Lesion type: ruby artery [place] vs. transplanted heart: ruby heart Associated angina: without angina Qualified Code(s): I25.10 - Atherosclerotic heart disease of [place] coronary artery without angina pectoris (6) Diabetes mellitus Code(s): E11.9 - TYPE 2 DIABETES MELLITUS WITHOUT COMPLICATIONS Status: Chronic Qualifiers: Diabetes mellitus type: type 2 Diabetes mellitus correction insulin use: without correction use Diabetes mellitus complication status: with neurologic complications Diabetes mellitus complication detail: with polyneuropathy Qualified Code(s): E11.42 - Type 2 diabetes mellitus with diabetic polyneuropathy (7) Dyslipidemia Code(s): E78.5 - HYPERLIPIDEMIA, UNSPECIFIED Status: Chronic (8) HTN (hypertension) Code(s): I10 - ESSENTIAL (PRIMARY) HYPERTENSION Status: Chronic Qualifiers: Hypertension type: essential hypertension Qualified Code(s): I10 - Essential (primary) hypertension (9) Hypothyroidism Code(s): E03.9 - HYPOTHYROIDISM, UNSPECIFIED Status: Chronic Qualifiers: Hypothyroidism type: unspecified Qualified Code(s): E03.9 - Hypothyroidism , unspecified (10) SHEELA (obstructive sleep apnea) Code(s): G47.33 - OBSTRUCTIVE SLEEP APNEA (ADULT) (PEDIATRIC) Status: Chronic Comment: non compliance with cpap (11) Seizure Code(s): R56.9 - UNSPECIFIED CONVULSIONS Status: Chronic - Plan got 2 doses of narcan and responded, uds is -ve, but pt is on narco at home -: noncompliance with cpap, likely has a component of polypharmacy, obesity hy -: -povent syndrome, counselled to wear cpap -: PT/OT to mobilize as tolerated, if not will need placement -: may tx to med floor, meds reconciled, reduce dose of lyrica, oral prednison * . Continue levaquin, nebs, asp, crestor, zetia, cardizem cd, propafenone, ranexa metformin, lyrica, zonisamide, oxybutynin, synthroid. Review of Systems - Medications/Allergies Allergies/Adverse Reactions: Allergies Allergy/AdvReac Type Severity Reaction Status Date / Time amitriptyline Allergy Severe Verified 05/26/18 22:04 exenatide [From [place]] Allergy Severe Verified 05/26/18 22:04 metoprolol succinate Allergy Severe Verified 05/26/18 22:04 [From Toprol XL] morphine Allergy Severe Hives Verified 05/26/18 22:04 adhesive Allergy Intermediate Verified 05/26/18 22:04 adhesive tape Allergy Verified 05/26/18 22:04 codeine Allergy Verified 05/26/18 22:04 meperidine HCl [From Demerol] Allergy Verified 05/26/18 22:04 topiramate [From Topamax] Allergy Verified 05/26/18 22:04 Medications: Current Medications Acetaminophen (Tylenol) 650 mg PO Q4H PRN PRN Reason: Headache/Fever/Mild Pain (1-3) Albuterol/Ipratropium (Duoneb) 3 ml NEB QID-RT [facility] Last Admin: 09/15/18 10:51 Dose: 3 ml Aspirin (Ecotrin) 81 mg PO HS [facility] Last Admin: 09/14/18 21:05 Dose: 81 mg Bisacodyl (Dulcolax) 10 mg NV DAILYPRN PRN PRN Reason: Constipation Dextrose/Water (Dextrose 50%) 25 gm SLOW IVP PRN PRN PRN Reason: Hypoglycemia Diltiazem HCl (Cardizem Cd) 120 mg PO DAILY [facility] Last Admin: 09/15/18 09:57 Dose: 120 mg Duloxetine HCl (Cymbalta) 60 mg PO HS [facility] Last Admin: 09/14/18 21:05 Dose: 60 mg Ezetimibe (Zetia) 10 mg PO HS [facility] Last Admin: 09/14/18 21:04 Dose: 10 mg Enoxaparin Sodium (Lovenox) 40 mg SC 0900 [facility] Last Admin: 09/15/18 09:58 Dose: Not Given Glucagon (Glucagon) 1 mg IM PRN PRN PRN Reason: Hypoglycemia Guaifenesin/Dextromethorphan (Robitussin Dm) 15 ml PO Q4H PRN PRN Reason: Cough Dextrose/Water (D5w) 1,000 mls @ 0 mls/hr IV .Q0M PRN PRN Reason: Hypoglycemia Sodium Chloride (Normal Saline 0.9%) 1,000 mls @ 100 mls/hr IV .Q10H [facility] Stop: 09/15/18 13:46 Last Admin: 09/15/18 09:56 Dose: 1,000 mls Levofloxacin 500 mg/ Device 100 mls @ 100 mls/hr IVPB Q24HR [facility] Last Admin: 09/14/18 20:55 Dose: 100 mls Insulin Human Lispro (Humalog) 0 units SC .MODERATE SLIDING SC PRN PRN Reason: Moderate Correctional Scale Last Admin: 09/15/18 11:15 Dose: 2 unit Insulin Human Lispro (Humalog) 0 units SC .BEDTIME SLIDING SC PRN PRN Reason: Bedtime Correctional Scale Levothyroxine Sodium (Synthroid) 75 mcg PO 0600 [facility] Last Admin: 09/15/18 06:30 Dose: 75 mcg Metformin HCl (Glucophage) 500 mg PO BID-[facility] Last Admin: 09/15/18 09:57 Dose: 500 mg Methylprednisolone Sodium Succinate (Solu-Medrol) 40 mg IVP Q6HR [facility] Last Admin: 09/15/18 11:15 Dose: 40 mg Nicotine (Nicoderm Patch) 21 mg TD Q24HR [facility] Last Admin: 09/14/18 21:11 Dose: 21 mg Ondansetron HCl (Zofran) 4 mg IVP Q6H PRN PRN Reason: Nausea/Vomiting Oxybutynin Chloride (Ditropan) 5 mg PO BID [facility] Last Admin: 09/15/18 09:59 Dose: 5 mg Pantoprazole Sodium (Protonix) 40 mg PO DAILY [facility] Last Admin: 09/15/18 09:59 Dose: 40 mg Pregabalin (Lyrica) 150 mg PO BID [facility] Last Admin: 09/15/18 09:59 Dose: Not Given Propafenone HCl (Rythmol) 150 mg PO TID [facility] Last Admin: 09/15/18 09:59 Dose: 150 mg Ranolazine (Ranexa) 500 mg PO BID [facility] Last Admin: 09/15/18 11:15 Dose: 500 mg Rosuvastatin Calcium (Crestor) 20 mg PO HS [facility] Last Admin: 09/14/18 21:05 Dose: 20 mg Senna/Docusate Sodium (Senokot S) 2 tab PO BID PRN PRN Reason: Constipation Sodium Chloride (Flush - Normal Saline) 10 ml IVF Q12HR [facility] Last Admin: 09/15/18 09:59 Dose: 10 ml Sodium Chloride (Flush - Normal Saline) 10 ml IVF PRN PRN PRN Reason: Saline Flush Zonisamide (Zonisamide) 300 mg PO [facility] Last Admin: 09/14/18 22:40 Dose: 300 mg
[2018-09-15] MEDS: Nicotine 21 MG PATCH TD SCH (20:59)
[2018-09-15] MEDS ORDERED: Famotidine/PF 20 mg/2ml Vial SLOW IVP SCH (21:00)
[2018-09-15] MEDS: Aspirin 81 mg Enteric Coated Tablet PO SCH (21:05)
[2018-09-15] MEDS: Ezetimibe 10 MG TAB PO SCH (21:05)
[2018-09-15] MEDS: Rosuvastatin 20 MG TAB PO SCH (21:05)
[2018-09-15] MEDS: Zonisamide 100 MG CAP PO SCH (21:05)
[2018-09-15] MEDS: DULoxetine 60 MG CAP PO SCH (21:05)
[2018-09-16] MEDS: Levothyroxine Sodium 75 MCG TAB PO SCH (06:18)
[2018-09-16] MEDS ORDERED: predniSONE 20 MG TAB PO SCH (08:00)
[2018-09-16] MEDS: Oxybutynin 5 MG TAB PO SCH (08:15)
[2018-09-16] MEDS: metFORMIN 500 MG TAB PO SCH ×2 (08:15→17:35)
[2018-09-16] MEDS: Enoxaparin Sodium 40 MG/0.4 ML SYRINGE SC SCH (08:16)
[2018-09-16] MEDS: Pregabalin 75 MG CAP PO SCH (08:17)
[2018-09-16 08:19] VITALS: BP 127/53
[2018-09-16 08:32] LABS: #Lymphocytes 1.2 thou/uL (1.20-3.40); #Monocytes 0.5 thou/uL (0.11-0.59); #Neutrophils 8.5 thou/uL (1.40-6.50); %Basophils 0.3 % (0.0-1.0); %Eosinophils 0.4 % (0.0-10.0); %Lymphocytes 11.9 % (21.0-51.0); %Monocytes 4.5 % (0.0-10.0); %Neutrophils 82.9 % (42.0-75.0); Hemoglobin 13.1 g/dL (12.0-16.0); Mean Corpuscular HGB CONC 33.1 g/dL (32.0-36.0); Mean Corpuscular Hemoglobin 31.1 pg (27.0-31.0); Mean Platelet Volume 8.3 fL (7.4-10.4); Platelet Count 129 thou/uL (130-400); RBC Distribution Width 12.7 % (11.5-14.5); Red Blood Cell (RBC) Count 4.22 mill/uL (4.20-5.40); White Blood Cell (WBC) Count 10.3 thou/uL (4.8-10.8)
[2018-09-16 08:47] LABS: Anion Gap 12 mmol/L (10-20); BUN (Urea Nitrogen) 15 mg/dL (9.8-20.1); Calc. Creatinine Clearance 106 mL/min (70-130); Calcium 8.8 mg/dL (7.8-10.44); Carbon Dioxide 22 mmol/L (23-31); Chloride 105 mmol/L (98-107); Estimated GFR-MDRD 70; Glucose 166 mg/dL (80-115); Potassium 4.5 mmol/L (3.5-5.1); Sodium 134 mmol/L (136-145)
--- NOTE | 2018-09-16 09:11 | PRG ---
DATE OF SERVICE: 09/16/2018 SUBJECTIVE: Lilliana Camargo, this morning, is awake, alert, and responsive. She is better. She slept on the BiPAP last night and states she has some chest pain. She is no longer short of breath. She wants to go home. OBJECTIVE: VITAL SIGNS: Temperature 98, pulse 58, blood pressure 127/53, and saturations are 100% on 2 L. CHEST: Decreased breath sounds. No wheezing. CARDIAC: Normal S1 and S2. No gallops. ABDOMEN: No masses. LABORATORY DATA: Unremarkable. Sodium is slightly decreased at 134. Otherwise, CBC is unremarkable. Metabolic encephalopathy, resolved. ASSESSMENT: 1. Chronic obstructive pulmonary disease exacerbation. 2. Sleep apnea. 3. Coronary artery disease. 4. Atrial fibrillation. PLAN: All cultures are negative. We will switch her to oral medication home at any time. It is unclear of the cause of her encephalopathy. I have minimized sedation as much as possible. Refrain from smoking. Job ID: [id number]
--- NOTE | 2018-09-16 13:46 | PDOC.PN ---
- Subjective Encounter Start Date: 09/16/18 Encounter Start Time: 07:45 Subjective: is awake, not in distress -: fully oriented this am -: has not amb much - Objective Resuscitation Status - Order Detail: 09/14/18 17:34 Resuscitation Status Routine Resuscitation Status: DNAR: NO Resuscitation Discussed with: d/w and POA at bedside in Emergency room 23 MAR Reviewed: Yes Vital Signs & Weight: Vital Signs (12 hours) Temp Pulse Resp BP BP Pulse Ox 09/16/18 11:06 62 17 98 09/16/18 10:38 98.7 F 09/16/18 08:15 58 L 127/53 L 09/16/18 08:00 93 L 09/16/18 07:10 98.3 F 09/16/18 06:12 100 09/16/18 06:03 58 L 16 100 09/16/18 04:00 98.8 F 54 L 14 133/59 L 98 09/16/18 02:05 59 L 11 L 100 Weight Weight 229 lb 6.4 oz Most Recent Monitor Data Heart Rate from ECG 60 NIBP 133/61 NIBP BP-Mean 85 Respiration from ECG 14 SpO2 98 I&O: 09/15/18 09/16/18 09/17/18 06:59 06:59 06:59 Intake Total 2242 Output Total 1770 Balance 472 Result Diagrams: 09/16/18 08:01 09/16/18 08:01 Additional Labs: Accuchecks 09/16/18 09/16/18 09/15/18 10:19 06:16 21:02 POC Glucose 145 H 129 H 177 H 09/15/18 09/14/18 16:26 19:09 POC Glucose 142 H 99 Phys Exam - Physical Examination HEENT: PERRLA, moist MMs Neck: no JVD, supple Respiratory: no wheezing, no rales Cardiovascular: RRR, no significant murmur Gastrointestinal: soft, non-tender, positive bowel sounds Musculoskeletal: no edema, pulses present Neurological: non-focal, moves all 4 limbs Psychiatric: normal affect, A&O x 3 Dx/Plan (1) Acute encephalopathy Code(s): G93.40 - ENCEPHALOPATHY, UNSPECIFIED Status: Resolved (2) COPD (chronic obstructive pulmonary disease) Status: Chronic Qualifiers: COPD type: chronic bronchitis (3) Morbid obesity due to excess calories Code(s): E66.01 - MORBID (SEVERE) OBESITY DUE TO EXCESS CALORIES Status: Chronic (4) Atrial fibrillation Code(s): I48.91 - UNSPECIFIED ATRIAL FIBRILLATION Status: Chronic Qualifiers: Atrial fibrillation type: paroxysmal Qualified Code(s): I48.0 - Paroxysmal atrial fibrillation (5) CAD (coronary artery disease) Code(s): I25.10 - ATHSCL HEART DISEASE OF [place] CORONARY ARTERY W/O ANG PCTRS Status: Chronic Qualifiers: Coronary Disease-Associated Artery/Lesion type: [place] artery [place] vs. transplanted heart: [place] heart Associated angina: without angina Qualified Code(s): I25.10 - Atherosclerotic heart disease of [place] coronary artery without angina pectoris (6) Diabetes mellitus Code(s): E11.9 - TYPE 2 DIABETES MELLITUS WITHOUT COMPLICATIONS Status: Chronic Qualifiers: Diabetes mellitus type: type 2 Diabetes mellitus ocean transportation intermediary insulin use: without ocean transportation intermediary use Diabetes mellitus complication status: with neurologic complications Diabetes mellitus complication detail: with polyneuropathy Qualified Code(s): E11.42 - Type 2 diabetes mellitus with diabetic polyneuropathy (7) Dyslipidemia Code(s): E78.5 - HYPERLIPIDEMIA, UNSPECIFIED Status: Chronic (8) HTN (hypertension) Code(s): I10 - ESSENTIAL (PRIMARY) HYPERTENSION Status: Chronic Qualifiers: Hypertension type: essential hypertension Qualified Code(s): I10 - Essential (primary) hypertension (9) Hypothyroidism Code(s): E03.9 - HYPOTHYROIDISM, UNSPECIFIED Status: Chronic Qualifiers: Hypothyroidism type: unspecified Qualified Code(s): E03.9 - Hypothyroidism , unspecified (10) SHEELA (obstructive sleep apnea) Code(s): G47.33 - OBSTRUCTIVE SLEEP APNEA (ADULT) (PEDIATRIC) Status: Chronic Comment: non compliance with cpap (11) Seizure Code(s): R56.9 - UNSPECIFIED CONVULSIONS Status: Chronic - Plan hemostable -: needs to amb with PT, if she can walk in [place] home -: If not will need swing bed in [place] -: continue nebs, levaquin, prednisone, asp, cardizem cd, crestor, zetia -: ranexa, zonisamide, oxybutynin, synthroid, cymbalta and lyrica * . Review of Systems - Medications/Allergies Allergies/Adverse Reactions: Allergies Allergy/AdvReac Type Severity Reaction Status Date / Time amitriptyline Allergy Severe Verified 05/26/18 22:04 exenatide [From Byetta] Allergy Severe Verified 05/26/18 22:04 metoprolol succinate Allergy Severe Verified 05/26/18 22:04 [From Toprol XL] morphine Allergy Severe Hives Verified 05/26/18 22:04 adhesive Allergy Intermediate Verified 05/26/18 22:04 adhesive tape Allergy Verified 05/26/18 22:04 codeine Allergy Verified 05/26/18 22:04 meperidine HCl [From Demerol] Allergy Verified 05/26/18 22:04 topiramate [From Topamax] Allergy Verified 05/26/18 22:04 Medications: Current Medications Acetaminophen (Tylenol) 650 mg PO Q4H PRN PRN Reason: Headache/Fever/Mild Pain (1-3) Albuterol/Ipratropium (Duoneb) 3 ml NEB QID-RT [facility] Last Admin: 09/16/18 11:06 Dose: 3 ml Aspirin (Ecotrin) 81 mg PO [facility] Last Admin: 09/15/18 21:05 Dose: 81 mg Bisacodyl (Dulcolax) 10 mg AR DAILYPRN PRN PRN Reason: Constipation Dextrose/Water (Dextrose 50%) 25 gm SLOW IVP PRN PRN PRN Reason: Hypoglycemia Diltiazem HCl (Cardizem Cd) 120 mg PO DAILY [facility] Last Admin: 09/16/18 08:15 Dose: 120 mg Duloxetine HCl (Cymbalta) 60 mg PO [facility] Last Admin: 09/15/18 21:05 Dose: 60 mg Ezetimibe (Zetia) 10 mg PO [facility] Last Admin: 09/15/18 21:05 Dose: 10 mg Enoxaparin Sodium (Lovenox) 40 mg SC 0900 [facility] Last Admin: 09/16/18 08:16 Dose: 40 mg Glucagon (Glucagon) 1 mg IM PRN PRN PRN Reason: Hypoglycemia Guaifenesin/Dextromethorphan (Robitussin Dm) 15 ml PO Q4H PRN PRN Reason: Cough Dextrose/Water (D5w) 1,000 mls @ 0 mls/hr IV .Q0M PRN PRN Reason: Hypoglycemia Insulin Human Lispro (Humalog) 0 units SC .MODERATE SLIDING SC PRN PRN Reason: Moderate Correctional Scale Last Admin: 09/15/18 11:15 Dose: 2 unit Insulin Human Lispro (Humalog) 0 units SC .BEDTIME SLIDING SC PRN PRN Reason: Bedtime Correctional Scale Levofloxacin (Levaquin) 500 mg PO 0600 [facility] Stop: 09/22/18 06:01 Levothyroxine Sodium (Synthroid) 75 mcg PO 0600 [facility] Last Admin: 09/16/18 06:18 Dose: 75 mcg Metformin HCl (Glucophage) 500 mg PO BID-[facility] Last Admin: 09/16/18 08:15 Dose: 500 mg Nicotine (Nicoderm Patch) 21 mg TD Q24HR [facility] Last Admin: 09/15/18 20:59 Dose: 21 mg Ondansetron HCl (Zofran) 4 mg IVP Q6H PRN PRN Reason: Nausea/Vomiting Oxybutynin Chloride (Ditropan) 5 mg PO BID [facility] Last Admin: 09/16/18 08:15 Dose: 5 mg Pantoprazole Sodium (Protonix) 40 mg PO DAILY [facility] Last Admin: 09/16/18 08:16 Dose: 40 mg Prednisone (Prednisone) 20 mg PO [facility] Last Admin: 09/16/18 08:15 Dose: 20 mg Pregabalin (Lyrica) 75 mg PO BID [facility] Last Admin: 09/16/18 08:17 Dose: 75 mg Ranolazine (Ranexa) 500 mg PO BID [facility] Last Admin: 09/16/18 08:15 Dose: 500 mg Rosuvastatin Calcium (Crestor) 20 mg PO [facility] Last Admin: 09/15/18 21:05 Dose: 20 mg Senna/Docusate Sodium (Senokot S) 2 tab PO BID PRN PRN Reason: Constipation Sodium Chloride (Flush - Normal Saline) 10 ml IVF Q12HR [facility] Last Admin: 09/16/18 08:18 Dose: 10 ml Sodium Chloride (Flush - Normal Saline) 10 ml IVF PRN PRN PRN Reason: Saline Flush Zonisamide (Zonisamide) 300 mg PO [facility] Last Admin: 09/15/18 21:05 Dose: 300 mg
[2018-09-16 15:23] VITALS: TEMP 98.2
--- NOTE | 2018-09-16 17:53 | DIS ---
DATE OF ADMISSION: 09/14/2018 DATE OF DISCHARGE: 09/16/2018 DISCHARGE DISPOSITION: Home with home health. PRIMARY DISCHARGE DIAGNOSIS: Acute encephalopathy, likely metabolic with component of polypharmacy. SECONDARY DISCHARGE DIAGNOSES: Chronic obstructive pulmonary disease; morbid obesity; chronic atrial fibrillation; coronary artery disease; diabetes mellitus type 2; dyslipidemia; hypertension; hypothyroidism; obstructive sleep apnea, noncompliance with CPAP; seizure. PROCEDURES DONE DURING HOSPITALIZATION: CT cervical spine without contrast done showed no acute fracture or subluxation. Stable moderate to severe multilevel spondylosis of the C-spine was seen. CT brain without contrast showed no acute intracranial abnormality. Blood cultures x2, no growth. Urine culture grew less than 10,000 colony-forming units, it was contaminated. Hemoglobin and hematocrit 13 and 39, platelet count 129. Discharge BUN and creatinine are 15 and 0.8, discharge sodium is 134. Troponin-I x1 is negative. Free T4 of 1.1. TSH 0.53. Ammonia was 30. Urine drug screen was negative. DISCHARGE MEDICATIONS: 1. Aspirin 81 mg p.o. daily. 2. Cardizem CD 120 mg p.o. daily. 3. Cymbalta 60 mg p.o. at bedtime. 4. Zetia 10 mg p.o. at bedtime. 5. Lasix 20 mg p.o. q.a.m. 6. DuoNeb q.4 hourly p.r.n. 7. Levothyroxine 75 mcg p.o. daily. 8. Lisinopril 5 mg p.o. at bedtime. 9. Metformin 500 mg p.o. twice daily. 10. Omeprazole 20 mg p.o. daily. 11. Oxybutynin 5 mg p.o. twice daily. 12. Rythmol 150 mg p.o. three times daily. 13. Ranexa 500 mg p.o. twice daily. 14. Crestor 20 mg p.o. at bedtime. 15. Zonisamide 300 mg p.o. at bedtime. 16. Levaquin 500 mg p.o. daily for four days. 17. Prednisone 20 mg p.o. daily for another two days. 18. Lyrica 75 mg p.o. twice daily. ALLERGIES: TO MULTIPLE AGENTS INCLUDING AMITRIPTYLINE, BYETTA, TOPROL-XL, MORPHINE, ADHESIVE TAPE, CODEINE, MEPERIDINE, TOPIRAMATE. INPATIENT CONSULT: Dr. Caro for Pulmonary and Critical Care. DISCHARGE PLAN: The patient to follow up with primary care physician in 1 week. BRIEF COURSE DURING HOSPITALIZATION: The patient initially was brought to emergency room by her as she was very lethargic and not herself. She was also very weak, and in fact, the patient's had to lift her up from the shower and another episode where she was on the floor and her had to literally lift her up. The patient is also on multiple medications with polypharmacy contributing to her acute encephalopathy. She was initially placed under telemetry. The patient became more obtunded and lethargic and had to be moved to [facility]. She also has history of obstructive sleep apnea and is not compliant with her CPAP. She was gently hydrated during her stay and was given 2 doses of Narcan, which improved her cognitive dysfunction. Her Lyrica was held and she has been placed on 75 mg twice daily for chronic pains. She needs to take Levaquin for another 4 days and prednisone for another 2 days. Her blood cultures were negative. Urine culture was contaminated. The patient has known history of COPD and continues to smoke. She was evaluated by Dr. Caro as well. The patient ambulated well with physical therapy and is walking in the hallway. In view of this, home health with PT and nursing will be arranged prior to discharge via Case Management. Please see a gaqp-me-[id number] documentation for the day of discharge on [employer]. Job ID: [id number]
== END 2018-09-16 18:00 | disposition home health service (06) | DRG 91 ==
LOC: ERS 14:53 → OBSVTOIN 19:05 → 2NO 19:05 → IMCU/EMU 19:57
PROVIDERS: ADMIT Internal Medicine; ATTEND Internal Medicine
DX: G92 Toxic encephalopathy (principal); J96.01 Acute respiratory failure with hypoxia; N17.9 Acute kidney failure, unspecified; J44.9 Chronic obstructive pulmonary disease, unspecified; E66.01 Morbid (severe) obesity due to excess calories; I48.2 Chronic atrial fibrillation; I25.10 Atherosclerotic heart disease of native coronary artery without angina pectoris; E86.0 Dehydration; E11.9 Type 2 diabetes mellitus without complications; E78.5 Hyperlipidemia, unspecified; E03.9 Hypothyroidism, unspecified; G47.33 Obstructive sleep apnea (adult) (pediatric); R56.9 Unspecified convulsions; Z91.19 Patient's noncompliance with other medical treatment and regimen; Z79.01 Long term (current) use of anticoagulants; Z88.6 Allergy status to analgesic agent; Z88.8 Allergy status to other drugs, medicaments and biological substances
CPT/HCPCS: 36415; 36416; 51701; 70450; 71045; 72125; 80048; 80053; 80306; 81003; 82140; 82550; 84439; 84443; 84480; 84484; 85025; 87040; 87086; 94640; 94660; 96374; A4353; J1650; J1956; J2310; J2920; J7512; J7620; S0028

== ENCOUNTER 2018-10-02 15:01 | Outpatient (CLI) | payer MEDICARE, MEDICAID ==
--- NOTE | 2018-10-02 16:08 | MMO ---
Bilateral MAMMO Bilat Screen [facility]. CLINICAL HISTORY: Patient is 68 years old and is seen for screening. The patient has the following family history of breast cancer: mother, at age 68. The patient has no personal history of cancer. VIEWS: The views performed were: bilateral craniocaudal with tomosynthesis and bilateral mediolateral oblique with tomosynthesis. FILMS COMPARED: The present examination has been compared to prior imaging studies performed at [facility] on 12/21/2014, and at [facility] on 05/20/2008. MAMMOGRAM FINDINGS: There are scattered fibroglandular densities. Finding 1: There are stable benign appearing densities seen in both breasts. Finding 2: There are stable benign appearing calcifications seen in both breasts. There are no suspicious masses, suspicious calcifications, or new areas of architectural distortion. IMPRESSION: THERE IS NO MAMMOGRAPHIC EVIDENCE OF MALIGNANCY. A ROUTINE FOLLOW-UP MAMMOGRAM IN 1 YEAR IS RECOMMENDED. THE RESULTS OF THIS EXAM WERE SENT TO THE PATIENT. ACR BI-RADS Category 2 - Benign finding MAMMOGRAPHY NOTE: 1. A negative mammogram report should not delay a biopsy if a dominant of clinically suspicious mass is present. 2. Approximately 10% to 15% of breast cancers are not detected by mammography. 3. Adenosis and dense breasts may obscure an underlying neoplasm. Reported by: MILO HINKLE MD Electonically Signed: [id number]
== END 2018-10-02 15:02 | disposition home or self-care (01) ==
LOC: BICMAMMO 15:01
PROVIDERS: ATTEND Family Medicine
DX: Z12.31 Encounter for screening mammogram for malignant neoplasm of breast (principal); Z80.3 Family history of malignant neoplasm of breast
CPT/HCPCS: 77063; 77067

== ENCOUNTER 2019-06-06 18:53 | Observation (INO) | payer MEDICARE, MEDICAID ==
[~2019-06-06 18:53] MED LIST: Iopamidol-370 76% 500 ML 1 ML ONE
[2019-06-06] MEDS ORDERED: Aspirin Chewable 81 MG TAB ONE (19:05)
[2019-06-06] MEDS ORDERED: Nitroglycerin 2% Ointment 1 INCH/1 GM Packet ONE (19:05)
[2019-06-06 19:32] LABS: #Eosinphils 0.2 thou/uL (0.0-0.7); #Lymphocytes 2.7 thou/uL (1.20-3.40); #Monocytes 0.6 thou/uL (0.11-0.59); #Neutrophils 6.1 thou/uL (1.40-6.50); %Basophils 0.2 % (0.0-1.0); %Eosinophils 2.5 % (0.0-10.0); %Lymphocytes 27.7 % (21.0-51.0); %Monocytes 5.7 % (0.0-10.0); %Neutrophils 63.9 % (42.0-75.0); Hemoglobin 14.1 g/dL (12.0-16.0); Mean Corpuscular Hemoglobin 31.5 pg (27.0-31.0); Mean Corpuscular Volume 92.6 fL (78.0-98.0); Mean Platelet Volume 8.1 fL (7.4-10.4); Platelet Count 154 thou/uL (130-400); RBC Distribution Width 12.8 % (11.5-14.5); Red Blood Cell (RBC) Count 4.47 mill/uL (4.20-5.40); White Blood Cell (WBC) Count 9.6 thou/uL (4.8-10.8)
[2019-06-06 19:54] LABS: ALT (SGPT) 16 U/L (8-55); AST (SGOT) 15 U/L (5-34); Albumin 3.6 g/dL (3.4-4.8); Alkaline Phosphatase 91 U/L (40-110); Anion Gap 11 mmol/L (10-20); BUN (Urea Nitrogen) 14 mg/dL (9.8-20.1); Bilirubin, Total 0.4 mg/dL (0.2-1.2); CK (CPK) 37 U/L (29-168); Calc. Creatinine Clearance 0 mL/min (70-130); Calcium 8.3 mg/dL (7.8-10.44); Carbon Dioxide 28 mmol/L (23-31); Chloride 105 mmol/L (98-107); Estimated GFR-MDRD 65; Globulin 1.7 g/dL (2.4-3.5); Glucose 108 mg/dL (83-110); Lipase 35 U/L (8-78); Potassium 4.3 mmol/L (3.5-5.1); Protein, Total 5.3 g/dL (6.0-8.3); Sodium 140 mmol/L (136-145)
--- NOTE | 2019-06-06 20:11 | RAD ---
PORTABLE CHEST: History: Chest pain Comparison: 09-15-18 FINDINGS: Heart size is enlarged. There are atherosclerotic changes of the aorta. The lungs are clear of infilt rates. There are no signs of failure. IMPRESSION: Cardiomegaly. POS: YONI
[2019-06-06] MEDS ORDERED: Nitroglycerin 0.4 MG TAB (25 Tab Bottle) PO PRN (21:12)
--- NOTE | 2019-06-06 21:37 | CT ---
CT ANGIO OF CHEST PERFORMED WITH INTRAVENOUS CONTRAST ENHANCEMENT WITH 3D RECONSTRUCTIONS: History: Chest pain, elevated D-dimer. FINDINGS: There are changes of central lobular emphysema. There is some minimal atelectatic changes in the lung bases. No pulmonary nodules or pleural effusions. The thoracic aorta is normal in caliber. There is good pulmonary artery opacification. The main pulmo nary artery is mildly dilated. The degree of dilatation of the pulmonary arteries makes for somewhat poor filling of some of the distal pulmonary artery branches but I see no evidence for pulmonary embo zev. A hiatal hernia is noted. Visualized liver parenchyma shows no focal findings. The gallbladder h as been removed. IMPRESSION: 1. Emphysematous lung changes with evidence for pulmonary artery hypertension. No CT evidence for pul monary embolus. POS: YONI
--- NOTE | 2019-06-06 22:00 | HP ---
CHIEF COMPLAINT: Collapse/syncope ? HISTORY OF PRESENT ILLNESS: Ms. Camargo is a 69-year-old female with past medical history of atrial fibrillation, CVA, congestive heart failure, brain tumor, sleep apnea, fibromyalgia, hypertension, hyperlipidemia, TIA, COPD, seizure, and among others, who was brought to the emergency room after the patient collapsed. As per records and EMS, family initiated three rounds of CPR ? When the EMS arrived, the patient was awake, alert, and oriented. She reported nausea and vomiting and jaw pain en route. As per the patient, she has not been feeling well in the last 3 days. Today, she started having chest pain radiating to the jaw. After that, she does not remember what happened. Initial workup in the emergency room including the troponin negative. EKG showed sinus rhythm with prolonged QT. CTA of the chest was done and as per ER physician, it was reported as no PE. Official report is not available at the time of this dictation. The patient was seen by Dr. Castelan in the past and had a stress test, which was unremarkable. The patient is going to be admitted to the hospital for further management. PAST MEDICAL HISTORY: As mentioned above in the history of present illness. PAST SURGICAL HISTORY: 1. Colonoscopy. 2. Angiogram. 3. Orthopedic left knee surgery. 4. Two heart stents. 5. Abdominal tumor removed. 6. Appendectomy. 7. Cholecystectomy. 8. Hysterectomy. 9. Bilateral cataract removal. PAST PSYCHIATRIC HISTORY: Anxiety. SOCIAL HISTORY: The patient smokes cigarettes daily. She denies alcohol drinking. Lives at home alone. FAMILY HISTORY: Reviewed and noncontributory. HOME MEDICATIONS: Please see home medication reconciliation form for updated medications. ALLERGIES: THE PATIENT IS ALLERGIC TO ADHESIVE TAPE, AMITRIPTYLINE, CODEINE, DEMEROL, MEPERIDINE, METOPROLOL, MORPHINE, TOPAMAX, TOPIRAMATE, AND TOPROL-XL. REVIEW OF SYSTEMS: Review of 14-systems negative except what is mentioned in history of present illness. PHYSICAL EXAMINATION: GENERAL: The patient is awake and alert, does not appear to be in acute distress. VITAL SIGNS: Blood pressure is 122/50, pulse is 65, respiratory rate is 16, oxygen saturation is 96% on 2 L/minute nasal cannula, and temperature is 98.2. HEAD AND NECK: Normocephalic and atraumatic. Neck is supple. No JVD. CHEST: Fair bilateral air entry. HEART: Distant heart sounds. ABDOMEN: Soft and nontender. Bowel sounds present. NEUROLOGIC: Awake, alert, and oriented. PSYCH: Unable to assess. EXTREMITIES: No clubbing. No cyanosis. GENITOURINARY: No suprapubic tenderness. No flank tenderness. LABORATORY DATA: Troponin 0.01. Electrolytes reviewed, unremarkable. D-dimer was 0.48. CBC is unremarkable. CTA of the chest was done and as per ER physician, he reported as negative for pulmonary embolism, but the official report is not available at the time of this dictation. ASSESSMENT: 1. Acute chest pain, rule out acute coronary syndrome. 2. Syncope collapse/cardiac arrest ? Family performed three rounds of CPR ? 3. Coronary artery disease. 4. History of cerebrovascular accident. 5. History of atrial fibrillation. 6. History of seizures. 7. Anxiety. 8. Cigarette smoker. PLAN: 1. Admit. 2. Telemonitoring. 3. Serial troponins. 4. Aspirin. 5. Orthostatic vital signs. 6. 2D echo. 7. 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 for evaluation and further recommendations. 8. Reconcile home medications. 9. DVT prophylaxis as appropriate. 10. Expected length of stay at least 1 midnight if the patient is stable and further workup negative. Job ID: [id number]
[2019-06-06 23:07] LABS: Troponin I Less than 0.010 ng/mL (< 0.028)
[2019-06-07] MEDS: Sodium Chloride 0.9% 1,000 ML IV SCH ×2 (00:04→15:19)
[2019-06-07 00:35] VITALS: BMI 36.3
[2019-06-07 01:47] LABS: Troponin I 0.015 ng/mL (< 0.028)
[2019-06-07] MEDS ORDERED: Enoxaparin Sodium 40 MG/0.4 ML SYRINGE SC SCH (09:00)
[2019-06-07] MEDS ORDERED: Enoxaparin Sodium 100 MG/ML SYRINGE SC SCH (09:00)
[2019-06-07] MEDS ORDERED: Aspirin 325 mg Enteric Coated Tablet PO SCH (09:00)
[2019-06-07] MEDS ORDERED: Aspirin 81 mg Enteric Coated Tablet PO SCH (09:45)
--- NOTE | 2019-06-07 10:22 | CON ---
DATE OF CONSULTATION: HISTORY OF PRESENT ILLNESS: The patient is a 69-year-old woman, who presented for evaluation of chest discomfort and apparently had a possible cardiac arrest. The patient has a long history of coronary artery disease. In 2007, she underwent PTCA and stent placement to the right coronary artery. The patient subsequently has been on medical therapy. She was then readmitted in 2012 with chest pain. She underwent a repeat catheterization, which revealed to have normal left ventricular systolic function. The left anterior descending and left circumflex were free of disease , There was a 20% restenosis in the right coronary artery, but otherwise free of significant disease. The patient also has a history of atrial fibrillation and flutter with a TIA. The patient has subsequently been on medical therapy. The patient has been admitted on several occasions with angina. She underwent a Cardiolite nuclear stress test a year ago, which revealed normal left ventricular systolic function with no evidence of significant ischemia. The patient reports developing left-sided chest discomfort that radiated into her jaw. The patient then suddenly lost consciousness. She was apparently resuscitated by her family. She was brought to the emergency room for further evaluation. The patient denies having any present chest discomfort. PAST MEDICAL HISTORY: 1. History of coronary artery disease. 2. History of paroxysmal atrial fibrillation. 3. Hypertension. 4. Diabetes mellitus. 5. Dyslipidemia. 6. History of CVA. 7. Seizure disorder. PAST SURGICAL HISTORY: Appendectomy, cholecystectomy, hysterectomy,knee replacement, and cataract surgery. SOCIAL HISTORY: Long history of tobacco abuse. ALLERGIES: SEE NURSING LIST. REVIEW OF SYSTEMS: Ten-point system otherwise unremarkable. PHYSICAL EXAMINATION: GENERAL: Obese woman, in no acute distress. VITAL SIGNS: Blood pressure of 135/61. NECK: Showed no jugular venous distention. LUNGS: Diminished breath sounds bilateral. HEART: Regular rate and rhythm. Normal S1 and S2. ABDOMEN: Distended. EXTREMITIES: Showed trace edema. VASCULAR: Radial pulses are 2+. LABORATORY DATA: Sodium 140, potassium 4.3, chloride 105, bicarbonate 28, BUN 14, creatinine 0.86, and glucose 108. Troponin less than 0.01. BNP was 16. White blood cell count is 9.6, hemoglobin 14.1, hematocrit 41.4, and platelets are 156. IMAGING DATA: EKG revealed normal sinus rhythm with a prolonged QT interval. IMPRESSION: 1. Syncope, possibly secondary to a cardiac arrest. 2. Unstable angina. 3. History of paroxysmal atrial fibrillation. 4. History of percutaneous transluminal coronary angioplasty and stent placement. 5. Diabetes mellitus. 6. Hypertension. 7. History of cerebrovascular accident. 8. Chronic obstructive pulmonary disease. This unfortunate woman had a possible cardiac arrest. There is no evidence of myocardial infarction or evidence of congestive heart failure. From a cardiac standpoint, I would be concerned about a primary arrhythmia with her being maintained on Rythmol. We will obtain EP consultation. We will treat for several days with Lovenox for unstable angina. At this time, recommend medical therapy with no objective evidence of ischemia or infarction. PLAN: 1. Lovenox 1 mg/kg subcu b.i.d. 2. Consultation with EP. Job ID: [id number] [facility]
--- NOTE | 2019-06-07 11:21 | PDOC.HOSPP ---
- Subjective Encounter Date: 06/07/19 Subjective: No chest pain this morning. - Objective Vital Signs & Weight: Vital Signs (12 hours) Temp Pulse Resp BP BP BP BP 06/07/19 07:20 97.9 F 68 16 135/61 108/56 L 115/56 L 06/07/19 04:00 97.6 F 67 18 118/55 L Pulse Ox 06/07/19 07:20 95 06/07/19 04:00 92 L Weight Weight 218 lb 1.6 oz I&O: 06/06/19 06/07/19 06/08/19 06:59 06:59 06:59 Intake Total 930 Output Total 500 650 Balance 430 -650 Result Diagrams: 06/06/19 19:23 06/06/19 19:23 Hospitalist ROS - Medication Medications: Active Medications Generic Name Dose Route Start Last Admin Trade Name Freq PRN Reason Stop Dose Admin Aspirin 81 mg 06/07/19 09:45 06/07/19 10:19 Ecotrin PO 06/07/19 11:45 81 mg NOW CARY Administration Enoxaparin Sodium 100 mg 06/07/19 09:00 06/07/19 10:19 Lovenox SC 100 mg 0900,2100 CARY Administration Sodium Chloride 1,000 mls @ 75 mls/hr 06/06/19 21:15 06/07/19 00:04 Normal Saline 0.9% IV 1,000 mls .[id number] CARY Administration - Exam General Appearance: awake alert ENT: normocephalic atraumatic Neck: supple, no JVD Heart: RRR Respiratory: normal chest expansion, no tachypnea Gastrointestinal: soft Neurological: cranial nerve grossly intact, no focal deficits Psychiatric: normal affect, A&O x 3 Hosp A/P (1) Syncope Code(s): R55 - SYNCOPE AND COLLAPSE Status: Acute (2) Unstable angina Status: Acute (3) Atrial fibrillation Code(s): I48.91 - UNSPECIFIED ATRIAL FIBRILLATION Status: Chronic Qualifiers: Atrial fibrillation type: paroxysmal Qualified Code(s): I48.0 - Paroxysmal atrial fibrillation (4) CAD (coronary artery disease) Code(s): I25.10 - ATHSCL HEART DISEASE OF [place] CORONARY ARTERY W/O ANG PCTRS Status: Chronic Qualifiers: Coronary Disease-Associated Artery/Lesion type: [place] artery [place] vs. transplanted heart: [place] heart Associated angina: without angina Qualified Code(s): I25.10 - Atherosclerotic heart disease of [place] coronary artery without angina pectoris (5) COPD (chronic obstructive pulmonary disease) Status: Chronic Qualifiers: COPD type: chronic bronchitis - Plan On medical management for unstable angina. No trop elevation. Possible cardiac arrest. Cardiac syncope due to arrythmia vs Seizure given her past history. Continue to monitor. EP consulted.
[2019-06-07] MEDS ORDERED: Communication Order-Pharmacy FS SCH (12:45)
[2019-06-07] MEDS ORDERED: Propafenone HCl 150 MG TAB PO SCH (15:00)
[2019-06-07] MEDS ORDERED: Zonisamide 100 MG CAP PO SCH (21:00)
[2019-06-07] MEDS ORDERED: Lisinopril 5 MG TAB PO SCH (21:00)
[2019-06-07] MEDS ORDERED: Ezetimibe 10 MG TAB PO SCH (21:00)
[2019-06-07] MEDS ORDERED: DULoxetine 60 MG CAP PO SCH (21:00)
[2019-06-07] MEDS ORDERED: Rosuvastatin 20 MG TAB PO SCH (21:00)
[2019-06-07] MEDS: clonazePAM 1 MG TAB PO SCH (21:27)
[2019-06-08] MEDS: Sodium Chloride 0.9% 1,000 ML IV SCH (05:03)
[2019-06-08] MEDS: clonazePAM 1 MG TAB PO SCH (05:05)
[2019-06-08] MEDS ORDERED: Levothyroxine Sodium 75 MCG TAB PO SCH (06:00)
[2019-06-08] MEDS ORDERED: Midazolam HCl 2 mg/2 ml Vial ONE (08:38)
[2019-06-08] MEDS ORDERED: Sodium Chloride 0.9% 200 ML IV PRN (08:59)
[2019-06-08] MEDS ORDERED: Nitroglycerin 0.4 MG TAB (25 Tab Bottle) SL PRN (08:59)
[2019-06-08] MEDS ORDERED: Aspirin 81 mg Enteric Coated Tablet PO SCH (09:00)
[2019-06-08] MEDS ORDERED: Furosemide 20 MG TAB PO SCH (09:00)
[2019-06-08] MEDS ORDERED: Lidocaine 1% w/Epinephrine 1:100K 20 ML VIAL ONE (09:26)
--- NOTE | 2019-06-08 09:54 | OP ---
DATE OF PROCEDURE: 06/08/2019 PROCEDURE: Implantable loop recorder insertion. REASON FOR PROCEDURE: Ms. Camargo is a 69-year-old woman with history of COPD, smoking, history of seizure disorder in the past, paroxismal atrial fibrillation previously on rhtyhmol, recurrent syncopal spells, presently with chest pains, left heart catheterization negative for new coronary artery disease with patent remotely placed stent. She has a normal LVEF, mildly prolonged QT on the EKG. She is here for a loop recorder insertion for further arrhythmia monitoring. DESCRIPTION OF PROCEDURE: The patient's precordial area was prepped and draped and anesthetized using subcutaneous lidocaine. With the [employer] tool kit, an incision was made over the 4th intercostal space. The loop recorder was inserted with a tool kit. The wound was closed with Steri-Strips. CONCLUSION: Successful LINQ recorder placement. PLAN: Continue monitoring with LINQ recorder. Job ID: [id number] [id number]
--- NOTE | 2019-06-08 11:29 | CON ---
DATE OF CONSULTATION: 06/07/2019 This report is dictated by Leann Rosario NP as scribe for Eugene Portillo MD. REASON FOR CONSULTATION: Syncope and collapse. CONSULTED PHYSICIAN: Dr. Eugene Portillo HISTORY OF PRESENT ILLNESS: Ms. Camargo is a 69-year-old woman, who was brought to [facility] following syncope and collapse at home. Her family initiated three rounds of CPR and EMS arrived. At the time the EMS arrived, the patient was awake, alert, and oriented, but reporting nausea and vomiting with jaw pain en route. She had been having chest pain that radiated up to the jaw, but had not been feeling well for up to 3 days prior to the incident. She does not have any memory surrounding her syncope and collapse. No incontinence or loss of bowel or bladder control. Initial workup in the emergency room was negative for PE, serial troponins have been negative. There is a concern for an arrhythmia component to this syncope and collapse and concern for cardiac arrest. Thus, Dr Castelan is requesting an EP consultation. Ms. Camargo has a history of atrial fibrillation and was placed on propafenone years ago during an emergency room visit for her atrial fibrillation. She has been on it since that time. She also carries a history of coronary artery disease with remote stenting with a stress test in the past that was reportedly unremarkable. There was consideration for an ischemic evaluation underway. Ms. Camargo is currently feeling well. She denies any current heart racing, palpitations, chest pain, pressure, syncope, near syncope, stroke, or stroke- like symptoms. This is of course aside from what was mentioned above prompting her hospitalization. PAST MEDICAL HISTORY: 1. Paroxysmal Atrial fibrillation started on rhtyhmol by ER per pt report in distant past. No recent doculented atrial fibrillation. 2. Cerebrovascular accident. 3. Congestive heart failure. 4. Brain tumor. 5. Sleep apnea. 6. Fibromyalgia. 7. Hypertension. 8. Hyperlipidemia. 9. COPD. 10. Seizure disorder. 11. Coronary artery disease with prior stenting in the RCA, most recent left heart catheterization in 2012, not found to have significant disease at that time. 12. Diabetes mellitus. 13. Hypothyroidism. SURGICAL HISTORY: Appendectomy, cholecystectomy, hysterectomy, knee replacement , and cataract surgery. SOCIAL HISTORY: Long history of tobacco use. FAMILY HISTORY: Daughter is a physician in [employer]. Denies sudden cardiac or early-onset CAD in her family. ALLERGIES: LIST INCLUDES AMITRIPTYLINE, EXENATIDE, METOPROLOL SUCCINATE, MORPHINE, ADHESIVES, CODEINE, DEMEROL, AND TOPAMAX. HOME MEDICATIONS: List includes; 1. Famotidine at bedtime p.r.n. 2. Claritin 10 mg daily. 3. Zonisamide three capsules at bedtime. 4. Crestor 20 mg at bedtime. 5. Lisinopril 5 mg at bedtime. 6. Zetia 10 mg at bedtime. 7. Cymbalta 60 mg at bedtime. 8. Aspirin 81 mg at bedtime. 9. Clonazepam 1 mg p.o. b.i.d. 10. Propafenone 150 mg p.o. t.i.d. 11. Omeprazole 20 mg daily. 12. Levothyroxine 75 mcg daily. 13. Furosemide 20 mg p.o. q.a.m. OBJECTIVE DATA: VITAL SIGNS: Temperature 98.3, pulse 82, blood pressure 141/62 , respirations 18, and oxygen 95% on room air. GENERAL: The patient is alert and oriented. Speech is clear. Affect is appropriate. She is in no apparent distress at the time the exam. She is obese. HEENT: Normocephalic and atraumatic. Sclerae are anicteric. EOMs are intact. Oral mucosa is moist and pink with adequate dentition. NECK: Supple without jugular venous distention. There is no lymphadenopathy. Trachea is midline. LUNGS: Clear to auscultation bilaterally without wheezes, crackles, or rhonchi. Tones are distant. Respirations are even and unlabored with good bilateral excursion. HEART: Rate is irregularly irregular with crisp S1 and S2. PMI is nonpalpable. No significant murmur, rub, or gallop is appreciated. ABDOMEN: Soft, nontender, and obese without palpable masses. Hepatojugular reflux is negative. Positive bowel sounds are noted throughout. EXTREMITIES: Warm and dry to touch without clubbing, cyanosis, or edema. NEUROLOGIC: Grossly intact. Nonfocal. Gait was not assessed. LABORATORY DATA: Chemistry is reviewed and is unremarkable. Creatinine is 0.86. Liver enzymes are within normal ranges. BNP is 16.3. Troponins are negative. Hematology is reviewed and is unremarkable. DATABASE: EKG today shows normal sinus rhythm with no severe QT prolongation. IMPRESSION: 1. Syncope and collapse. 2. Angina, rule out acute coronary syndrome. 3. Coronary artery disease with prior stenting, left heart catheterization in 2013. 4. History of cerebrovascular accident. 5. History of paroxysmal atrial fibrillation, in [facility], on propafenone. 6. History of seizure disorder. 7. Anxiety. 8. Tobacco habituation. 9. CHADS-VASc score of 8 on the basis of advancing age, female gender, history of heart failure, vascular disease, history of stroke, diabetes, and hypertension. No anticoagulation on home medication list. Lovenox ordered during hospital stay, but currently discontinued. PLAN AND RECOMMENDATIONS: Ms. Camargo had a syncopal episode that is a first- time occurrence for her. She does have multiple issues in her past medical history that could be contributing factors to this episode including a seizure disorder, prior stroke, cardiomyopathy, and coronary artery disease, in addition to atrial fibrillation. She also presented with acute chest pain and Cardiology is also consulted and considering an ischemic evaluation, which I am strong supportive. There is some report of family doing three rounds of CPR, although there has been no increase in her troponins, which is somewhat conflicting if there was a true cardiac arrest. The rhythm has been stable since admission. There is no significant ventricular ectopy burden. An echocardiogram is ordered and pending. The QT interval on her initial EKG is slightly prolonged, but not severely, and she has not had any bradycardic episodes or rhythms concerning for torsades. At this point, my recommendation would be for ischemic evaluation to rule out any coronary artery disease possible contributing factors and also through the echocardiogram that is already ordered. We will continue to watch her rhythm through telemetry. There is a limited benefit from a possible electrophysiology study at this point an ICD is not considered. Otherwise, since this is not her a first time of the above chest pain and dyspnia/syncopal spell occurrence, we could offer extended monitoring with an implantable loop recorder , especially if rhythms remain stable and her ejection fraction and ischemic evaluation is normal. Given her history of cardiomyopathy and coronary artery disease, Rythmol is not an ideal choice for suppression of her atrial fibrillation. I would avoid class 1C antiarrhythmic medications with her. I will stop her Rythmol and allow for washout. We will continue to monitor her rhythm, but if recurrence is seen, antiarrhythmic therapy with Multaq could be considered. Long-term, she may require oral anticoagulation, if atrial fibrillation recurrence is seen, given her severely elevated CHADS- VASc score of 8. Hence the history of syncope, I would not initiate this just yet, untill recurretn atrial fibrillation is seen. Thank you for allowing me to participate in the care of this patient. I will continue to follow. Job ID: [id number] [facility]
[2019-06-08 11:38] VITALS: TEMP 97.6
[2019-06-08 15:49] VITALS: BP 151/65
--- NOTE | 2019-06-09 07:49 | DIS ---
DATE OF ADMISSION: 06/06/2019 DATE OF DISCHARGE: 06/08/2019 DISCHARGE DIAGNOSES: 1. Syncope and collapse. 2. Unstable angina. 3. Atrial fibrillation. 4. Coronary artery disease. 5. Chronic obstructive pulmonary disease. 6. History of seizures. DISCHARGE MEDICATIONS: 1. Aspirin 81 mg orally nightly. 2. Clonazepam 1 mg orally twice daily. 3. Cymbalta 60 mg orally nightly. 4. Zetia 10 mg orally nightly. 5. Furosemide 20 mg orally daily. 6. Levothyroxine 75 mcg orally daily. 7. Lisinopril 20 mg orally nightly. 8. Omeprazole 20 mg orally daily. 9. Rosuvastatin 20 mg orally nightly. 10. Zonisamide 100 mg capsule. The patient will take 3 capsules daily at bedtime. 11. Famotidine 20 mg orally nightly. 12. Claritin 10 mg orally daily. 13. Propafenone 150 mg orally t.i.d. HISTORY OF PRESENT ILLNESS AND HOSPITAL COURSE: The patient is a 69-year-old female with past medical history of seizures, COPD, atrial fibrillation, congestive heart failure, brain tumor, sleep apnea, hypertension, hyperlipidemia, and TIA, who was admitted to the hospital for recurrent syncopal events. The patient collapsed at home and the family performed CPR as the patient was thought to have had a cardiac arrest. The patient was brought to the ER, where she was alert and had no evidence of cardiac abnormalities on the monitor. The patient was admitted to the hospital for further monitoring and evaluation. Serial troponins were unremarkable. Left cardiac catheterization was negative for new coronary artery disease with patent remotely placed stent. Subsequently, Electrophysiology service was consulted and a loop recorder was placed to further monitor her arrhythmia. On the day of discharge, the patient had no new complaints. Job ID: [id number]
--- NOTE | 2019-06-09 14:03 | EKG ---
Test Reason : Blood Pressure : / mmHG Vent. Rate : 080 BPM Atrial Rate : 080 BPM P-R Int : 140 ms QRS Dur : 092 ms QT Int : 412 ms P-R-T Axes : 054 -47 025 degrees QTc Int : 475 ms Normal sinus rhythm Left axis deviation Prolonged QT Abnormal ECG Confirmed by CHOLO PORTER, NAZANIN ([id number]), newspaper or periodical editor JULISSA ROCHA ([id number]) on 06/09/2019 2:03:02 PM Referred By: Confirmed By:NAZANIN EMMANUEL MD
--- NOTE | 2019-06-09 14:47 | PRG ---
DATE OF SERVICE: 06/08/2019 SUBJECTIVE: Ms. Camargo seems to be doing fair. No new events noted overnight. OBJECTIVE DATA: VITAL SIGNS: Blood pressure this morning is 136/65 sitting, 179/57 standing, and 132/58 lying down flat; heart rate 61; respiratory rate is 18; and temperature 97.3 degrees Fahrenheit. GENERAL: She is alert and oriented woman, in no apparent distress. NECK: Supple. Jugular veins not distended. CHEST: Coarse. No crackles. No wheezes are heard. HEART: Sounds are regular to rate and rhythm. No murmur or gallop. ABDOMEN: Benign. Bowel sounds positive. EXTREMITIES: Lower extremity without edema, clubbing, or cyanosis. DATABASE: No new lab since admit. EKGs again reviewed revealing normalizing QT intervals. A followup 7-lead EKG with QT less than 400 msec. The telemetry reviewed revealing no tachyarrhythmias. Mild bradycardia at night in high 30s noted at sleeping hours. ASSESSMENT/PLAN: Ms. Camargo is a 69-year-old woman with recurrent syncopal spells, possible seizure history. She had passing out spell prompting EMS visit and possible brief resuscitation efforts, rhythm is not documented. She came back before ambulance arrived without any tachy or bradyarrhythmia is documented. No significant cardiac enzyme change or EKG changes are noted. She had no significant structural heart disease by echocardiogram and her left heart catheterization today demonstrated patent coronary arteries and patent prior stents. Although she had borderline QT prolongation, no torsade like arrhythmia seen on her monitor. Mild bradycardia at nighttime. It was asymptomatic, possibly related to sleep apnea. Her dyspnea and chest pain preceding the events have also resolved without recurrence. 1. My impression is recurrent syncopal spells of unclear etiology, likely would benefit from further arrhythmia monitoring and the episodes are frequent, the loop recorder implant would be advocated. Discussed with the daughter and the patient and both agree loop recorder is implanted. See separate report. 2. Mild QT prolongation on admit normalized on further tele monitoring without evident proarrhythmia with QT prolongation agents(rhtyhmol)- now stopped. 3. History of seizure disorder, possible also explanation for her syncope, although no definite seizures noted at this time. 4. Chronic obstructive pulmonary disease with continued smoking. 5. H/o paroxismal atrial fibrillation on chr Rhtyhmol. Now stopped with no recurrence in hospital tele. We will avoid calss 1c antiarrhythmic agents hence history of coronary artery disease although at this point, no obstruction is documented. Alternatively, Multaq could be considered if atrial fibrillation recurs in the future if QT remain normal. 6. Hence, history of syncope. At this point, we will not initiate oral anticoagulation unless recurrent atrial fibrillation is seen on loop recorder. 7. Followup visit is encouraged in 6 weeks. She will also see Dr. Castelan back. Job ID: [id number] [facility]
== END 2019-06-08 16:57 | disposition home or self-care (01) ==
LOC: ERS 18:53 → 2SW 21:07
PROVIDERS: ADMIT Internal Medicine; ATTEND Internal Medicine
PROC: 4A023N7 Measurement of Cardiac Sampling and Pressure, Left Heart, Percutaneous Approach (ICD-10-PCS; principal; 2019-06-06)
PROC: B2110ZZ Fluoroscopy of Multiple Coronary Arteries using High Osmolar Contrast (ICD-10-PCS; 2019-06-06)
DX: I25.110 Atherosclerotic heart disease of native coronary artery with unstable angina pectoris (principal); I48.0 Paroxysmal atrial fibrillation; I11.0 Hypertensive heart disease with heart failure; I50.9 Heart failure, unspecified; J42 Unspecified chronic bronchitis; E03.9 Hypothyroidism, unspecified; E11.9 Type 2 diabetes mellitus without complications; E78.5 Hyperlipidemia, unspecified; F17.210 Nicotine dependence, cigarettes, uncomplicated; F41.9 Anxiety disorder, unspecified; G40.909 Epilepsy, unspecified, not intractable, without status epilepticus; G47.30 Sleep apnea, unspecified; Z79.899 Other long term (current) drug therapy; Z79.82 Long term (current) use of aspirin; Z86.73 Personal history of transient ischemic attack (TIA), and cerebral infarction without residual deficits; Z88.5 Allergy status to narcotic agent; Z88.8 Allergy status to other drugs, medicaments and biological substances; Z91.048 Other nonmedicinal substance allergy status
CPT/HCPCS: 33285; 71045; 71275; 80053; 82550; 83690; 83880; 84484 ×3; 85025; 85379; 93005; 93306; 93458; 94760; 96360; 96361 ×2; 99285; C1764; C1769; G0378 ×4; 36415; 99152; J1644; J1650; J2250; Q9967

== ENCOUNTER 2019-11-15 06:17 | Outpatient (CLI) | payer MEDICARE, MEDICAID, OTHER ==
[2019-11-16 13:01] LABS: SARS-CoV-2 MS2 Positive; SARS-CoV-2 N Gene Negative; SARS-CoV-2 S Gene Negative; SARS-CoV-2 by NAA Not Detected (NotDetected); SARS-CoV-2 orf1ab Negative
== END 2019-11-15 06:18 | disposition home or self-care (01) ==
LOC: LABBT 06:17
PROVIDERS: ATTEND Internal Medicine Gastroenterology
DX: D12.6 Benign neoplasm of colon, unspecified (principal); R19.5 Other fecal abnormalities; Z20.828 Contact with and (suspected) exposure to other viral communicable diseases
CPT/HCPCS: 87635; U0003

== ENCOUNTER 2019-11-18 08:00 | Day surgery (SDC) | payer MEDICARE, MEDICAID ==
[2019-11-16 12:05] VITALS: BMI 34.9
[2019-11-18] MEDS ORDERED: PROPOFOL 200 MG/20 ML VIAL ONE (10:32)
--- NOTE | 2019-11-18 11:48 | OP ---
DATE OF PROCEDURE: 11/18/2019 PROCEDURE PERFORMED: Colonoscopy with snare polypectomy. PREOPERATIVE DIAGNOSIS: Large flat adenomatous polyp in the distal transverse colon removed piecemeal previously, now due for followup exam. DESCRIPTION OF PROCEDURE: Informed consent was obtained from the patient. She was sedated with total intravenous anesthesia. Rectal exam was performed and was normal. The preparation quality was fair at best, but adequate for the purpose of this exam, which was to remove any residual polyp tissue from the previous polypectomy site. The colonoscope was advanced with difficulty to the cecum, where the ileocecal valve and appendiceal orifice were identified. There was significant amount of stool in the cecum and scattered stool throughout the ascending colon, transverse colon, and descending colon. There were somewhat fixed flexures in the sigmoid colon, which were difficult to navigate this old stiff scope through. The previous polypectomy site was identified. There were 2 areas of residual polyp at the previous scar site and next to the tattoo. I removed the remaining polyp tissue and burned the front edge of the polypectomy site with the snare tip with cautery. I removed a 5 mm polyp from the descending colon by snare cautery polypectomy. There was diverticulosis, which was mild overall in the sigmoid colon. Retroflexed views in the rectum were unremarkable. IMPRESSION: 1. She still has couple of sites of residual polyp at the previous large flat polypectomy site that was removed piecemeal. This was now scarred down, but the residual polyp was removed with a snare with the edges of the polypectomy base burned with the snare tip with cautery. 2. Small polyp removed from the descending colon. 3. Sigmoid diverticulosis with somewhat fixed flexures in the sigmoid colon, which makes navigation through the sigmoid challenging. 4. Fair prep at best for this exam. RECOMMENDATIONS: 1. Await histopathology. 2. Repeat colonoscopy again in 6 months to reassess the polypectomy site and verify that there is no residual polyp tissue. Job ID: [id number]
== END 2019-11-18 11:10 | disposition home or self-care (01) ==
LOC: SDC 08:00
PROVIDERS: ATTEND Internal Medicine Gastroenterology
PROC: 0DBM8ZX Excision of Descending Colon, Via Natural or Artificial Opening Endoscopic, Diagnostic (ICD-10-PCS; principal; 2019-11-18)
PROC: 0DBL8ZX Excision of Transverse Colon, Via Natural or Artificial Opening Endoscopic, Diagnostic (ICD-10-PCS; 2019-11-18)
DX: Z09 Encounter for follow-up examination after completed treatment for conditions other than malignant neoplasm (principal); K63.5 Polyp of colon; K57.30 Diverticulosis of large intestine without perforation or abscess without bleeding; R19.5 Other fecal abnormalities; E78.5 Hyperlipidemia, unspecified; I10 Essential (primary) hypertension; I25.10 Atherosclerotic heart disease of native coronary artery without angina pectoris; I48.91 Unspecified atrial fibrillation; E11.9 Type 2 diabetes mellitus without complications; K21.9 Gastro-esophageal reflux disease without esophagitis; M19.90 Unspecified osteoarthritis, unspecified site; M79.7 Fibromyalgia; M85.80 Other specified disorders of bone density and structure, unspecified site; F41.9 Anxiety disorder, unspecified; J43.9 Emphysema, unspecified; E78.00 Pure hypercholesterolemia, unspecified; F32.9 Major depressive disorder, single episode, unspecified; F17.210 Nicotine dependence, cigarettes, uncomplicated; E66.3 Overweight; Z68.37 Body mass index [BMI] 37.0-37.9, adult; Z86.010 Personal history of colon polyps; Z86.73 Personal history of transient ischemic attack (TIA), and cerebral infarction without residual deficits; Z79.01 Long term (current) use of anticoagulants; Z79.82 Long term (current) use of aspirin; Z79.84 Long term (current) use of oral hypoglycemic drugs; Z79.899 Other long term (current) drug therapy; Z88.5 Allergy status to narcotic agent; Z88.8 Allergy status to other drugs, medicaments and biological substances; Z91.048 Other nonmedicinal substance allergy status; Z95.5 Presence of coronary angioplasty implant and graft
CPT/HCPCS: 88305; J2704

== ENCOUNTER 2020-10-03 14:17 | Outpatient (CLI) | payer MEDICARE, OTHER | END 2020-10-03 14:18 | disposition home or self-care (01) | LOC: BICMAMMO 14:17 | PROVIDERS: ATTEND Family Medicine | DX: Z12.31 Encounter for screening mammogram for malignant neoplasm of breast (principal); Z80.3 Family history of malignant neoplasm of breast | CPT/HCPCS: 77063; 77067 ==

== ENCOUNTER 2020-11-16 08:28 | Outpatient (CLI) | payer MEDICARE, OTHER | END 2020-11-16 08:29 | disposition home or self-care (01) | LOC: BICCT 08:28 | PROVIDERS: ATTEND Physician Assistant Medical | DX: R10.33 Periumbilical pain (principal); R63.4 Abnormal weight loss; D12.6 Benign neoplasm of colon, unspecified; R19.4 Change in bowel habit; K43.9 Ventral hernia without obstruction or gangrene | CPT/HCPCS: 74177; 82565 ==

== ENCOUNTER 2021-01-05 12:01 | Outpatient (CLI) | payer MEDICARE, OTHER ==
[2021-01-05 23:50] LABS: SARS-CoV-2 PCR by NAA Not Detected (NotDetected)
== END 2021-01-05 12:02 | disposition home or self-care (01) ==
LOC: LABBT 12:01
PROVIDERS: ATTEND Internal Medicine Gastroenterology
DX: Z01.812 Encounter for preprocedural laboratory examination (principal); Z20.822 Contact with and (suspected) exposure to COVID-19
CPT/HCPCS: U0003; U0005

== ENCOUNTER 2021-02-08 11:48 | Outpatient (CLI) | payer MEDICARE, MEDICAID ==
[2021-02-08 22:21] LABS: SARS-CoV-2 PCR by NAA Not Detected (NotDetected)
== END 2021-02-08 11:49 | disposition home or self-care (01) ==
LOC: LABBT 11:48
PROVIDERS: ATTEND Internal Medicine Gastroenterology
DX: Z01.812 Encounter for preprocedural laboratory examination (principal); D12.6 Benign neoplasm of colon, unspecified; R19.4 Change in bowel habit; Z20.822 Contact with and (suspected) exposure to COVID-19
CPT/HCPCS: U0003; U0005

== ENCOUNTER 2021-02-13 07:13 | Day surgery (SDC) | payer MEDICARE, MEDICAID ==
[2021-02-09 15:42] VITALS: BMI 32.5
[2021-02-13] MEDS ORDERED: PROPOFOL 200 MG/20 ML VIAL ONE (10:05)
[2021-02-13] MEDS ORDERED: Albuterol Sulfate HFA (OR ONLY) ONE ×2 (10:05→10:23)
[2021-02-13] MEDS ORDERED: Albuterol Sulfate 1.25 MG/3 ML NEB ONE (10:22)
== END 2021-02-13 11:40 | disposition home or self-care (01) ==
LOC: SDC 07:13
PROVIDERS: ATTEND Internal Medicine Gastroenterology
PROC: 0DB38ZX Excision of Lower Esophagus, Via Natural or Artificial Opening Endoscopic, Diagnostic (ICD-10-PCS; principal; 2021-02-13)
PROC: 0DB78ZX Excision of Stomach, Pylorus, Via Natural or Artificial Opening Endoscopic, Diagnostic (ICD-10-PCS; 2021-02-13)
PROC: 0DBL8ZZ Excision of Transverse Colon, Via Natural or Artificial Opening Endoscopic (ICD-10-PCS; 2021-02-13)
DX: Z12.11 Encounter for screening for malignant neoplasm of colon (principal); K63.89 Other specified diseases of intestine; K31.89 Other diseases of stomach and duodenum; K21.00 Gastro-esophageal reflux disease with esophagitis, without bleeding; K44.9 Diaphragmatic hernia without obstruction or gangrene; K57.30 Diverticulosis of large intestine without perforation or abscess without bleeding; Q43.8 Other specified congenital malformations of intestine; J44.9 Chronic obstructive pulmonary disease, unspecified; E11.9 Type 2 diabetes mellitus without complications; E03.9 Hypothyroidism, unspecified; G47.33 Obstructive sleep apnea (adult) (pediatric); E78.5 Hyperlipidemia, unspecified; I10 Essential (primary) hypertension; I25.10 Atherosclerotic heart disease of native coronary artery without angina pectoris; I48.91 Unspecified atrial fibrillation; G40.909 Epilepsy, unspecified, not intractable, without status epilepticus; M19.90 Unspecified osteoarthritis, unspecified site; M79.7 Fibromyalgia; M85.80 Other specified disorders of bone density and structure, unspecified site; Z86.010 Personal history of colon polyps; Z87.891 Personal history of nicotine dependence; Z79.82 Long term (current) use of aspirin; Z79.84 Long term (current) use of oral hypoglycemic drugs; Z79.899 Other long term (current) drug therapy; Z88.5 Allergy status to narcotic agent; Z88.8 Allergy status to other drugs, medicaments and biological substances; Z91.048 Other nonmedicinal substance allergy status; Z95.5 Presence of coronary angioplasty implant and graft
CPT/HCPCS: 88305; 88312; 88313; J2704

== ENCOUNTER 2021-06-06 09:23 | Outpatient (CLI) | payer OTHER, MEDICAID ==
[2021-06-06] MEDS ORDERED: Magnevist 469MG/ML 20 ML VIAL ONE (09:51)
== END 2021-06-06 09:24 | disposition home or self-care (01) ==
LOC: MRI 09:23
PROVIDERS: ATTEND Family Medicine
DX: G93.89 Other specified disorders of brain (principal); I67.89 Other cerebrovascular disease
CPT/HCPCS: 70553; A9579

== ENCOUNTER 2021-10-05 13:10 | Outpatient (CLI) | payer OTHER | END 2021-10-05 13:11 | disposition home or self-care (01) | LOC: BICMAMMO 13:10 | PROVIDERS: ATTEND Family Medicine | DX: Z12.31 Encounter for screening mammogram for malignant neoplasm of breast (principal); Z80.3 Family history of malignant neoplasm of breast | CPT/HCPCS: 77063; 77067 ==